=== PATIENT | male | born 1960 | race Caucasian/White ===

== ENCOUNTER 2022-02-21 07:10 | Outpatient (REF) | payer OTHER, SELFPAY ==
[2022-02-21 11:25] LABS: Hemoglobin 12.2 g/dl (14.0-18.0); Mean Corpuscular HGB Conc 31.3 g/dl (31.0-36.0); Mean Corpuscular Hemoglobin 28.4 pg (27.0-33.0); Mean Corpuscular Volume 90.9 fL (80.0-98.0); Mean Platelet Volume 9.1 fL (9.4-12.4); Platelet Count 362 X10*3/uL (160-400); Red Blood Count 4.29 X10*6/uL (4.60-5.80); Red Cell Distribution Width 14.6 % (11.0-16.0); White Blood Count 10.7 X10*3/uL (4.8-10.8)
[2022-02-21 11:50] LABS: Estimated Average Glucose 189 mg/dL; Hemoglobin A1c % 8.2 %
[2022-02-21 12:02] LABS: Alanine Aminotransferase 15 U/L (0-40); Albumin Level 4.4 g/dL (3.5-5.0); Alkaline Phosphatase 81 U/L (39-117); Anion Gap 15 (12-20); Aspartate Amino Transferase 14 U/L (5-37); Bilirubin Total 0.7 mg/dL (0.0-1.0); Blood Urea Nitrogen 17 mg/dL (9-16); Calcium 9.6 mg/dL (8.4-10.2); Carbon Dioxide 26 mmol/L (22-29); Chloride 104 mmol/L (96-108); Cholesterol 111 mg/dL; Estimated Glomerular Filt Rate > 60; Glucose Fasting 183 mg/dL (60-99); HDL Cholesterol 41 mg/dL; LDL Cholesterol Calculated 51 mg/dl; Potassium 4.1 mmol/L (3.3-5.1); Sodium 141 mmol/L (135-145); Total Protein 6.9 g/dL (6.5-8.0); Triglycerides 96 mg/dL
[2022-02-21 12:16] LABS: Prostate Specific Antigen Scr 0.27 ng/mL (<0.05-4.0); TSH reflex Free T4 2.54 uIU/mL (0.32-4.0)
[2022-02-21 12:34] LABS: Microalbum/Creatinine Ratio Ur 7.3 ug/mg cr
== END 2022-02-21 07:11 | disposition home or self-care (01) ==
LOC: HO.HMGCLDS 07:10
PROVIDERS: PCP Physician Assistant; Visit Provider Physician Assistant
DX: Z12.5 Encounter for screening for malignant neoplasm of prostate (principal); I25.10 Atherosclerotic heart disease of native coronary artery without angina pectoris; E11.59 Type 2 diabetes mellitus with other circulatory complications
CPT/HCPCS: 36415; 80053; 80061; 82043; 83036; 84153; 84443; 85027

== ENCOUNTER → 2022-06-13 12:19 | Outpatient (BNVA) | payer OTHER, SELFPAY | PROVIDERS: PCP Physician Assistant; Visit Provider Nurse Practitioner | DX: Z01.818 Encounter for other preprocedural examination (principal); Z86.010 Personal history of colon polyps; E78.00 Pure hypercholesterolemia, unspecified; I10 Essential (primary) hypertension; I25.2 Old myocardial infarction | CPT/HCPCS: 99202 ==

== ENCOUNTER 2022-12-07 07:53 | Day surgery (SDC) | payer MEDICARE, SELFPAY ==
[2022-12-06 08:39] VITALS: BMI 24.4
--- NOTE | 2022-12-06 11:56 | P.CONAN_ITS ---
Documented by User: Tari Lee NP 12/06/22 11:59 HPI - Anesthesia Eval Consult details Narrative: 62yo M for Colonoscopy CAD s/p NM 08/2020 s/p GREG to proximal DI. Stable at cardiac office visit 01/2022. Plavix d/c'd [facility] Active Problems Active Problems: All Active Problems (Updated 12/06/22 @ 08:42 by Maris Graff RN) DMII (diabetes mellitus, type 2) (Acute) CAD (coronary artery disease) (Acute) Family history of colon cancer (Acute) Tubular adenoma of colon (Acute) Pre-op examination (Acute) High cholesterol (Acute) HTN (hypertension), benign (Acute) History of myocardial infarction (Acute) Past Medical History Medical History (Updated 12/06/22 @ 08:42 by Maris Graff RN) CAD (coronary artery disease) Diabetes Elevated cholesterol HTN (hypertension) Myocardial infarction Family History Family History Mother Colon cancer Father No problems noted. 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 LV systolic function nml. LVEF 60-65%. No RWMA 2. Mild descrete upper septal thickening 3. RV size and function appears grossly nml 4. No significant valvular abnormalities No significiant change from 08/2020 Assessment and Plan Assessment Anesthesia Assessment: Chart Reviewed Documented by User: Felipe Dwyer MD 12/07/22 09:17 [facility] Past Medical History Medical History (Updated 12/06/22 @ 08:42 by Maris Graff RN) CAD (coronary artery disease) Diabetes Elevated cholesterol HTN (hypertension) Myocardial infarction Family History Family History Mother Colon cancer Father No problems noted. Family history of problems with anesthesia: No Surgical History Surgical History (Updated 12/06/22 @ 08:40 by Maris Graff RN) H/O colonoscopy H/O heart artery stent H/O spinal fusion History of Problems with Anesthesia: No Social History Social History Housing: House Alcohol intake: former Year quit: 2016 Patient Tobacco Use Status: Never used Tobacco e-Cigarette/Vaping Use: Never Used Substance Use Frequency: Occasionally Are you DNR?: No Advance Directives: No Advance Directives Information Provided: Yes Nutrition Risks: No Nutritional Risk service: No Current occupational status: disabled and other (self employed) 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 Cognitive needs: No Hearing needs: No Vision needs: Yes Meds Allergies Allergy/AdvReac Type Severity Reaction Status Date / Time No Known Drug Allergies Allergy Unknown Unknown Verified 06/13/22 12:25 Home Medications Medication Instructions Recorded Confirmed Last Taken Type metoprolol tartrate 25 mg tablet 25 mg PO DAILY 05/16/22 12/06/22 Unknown History Exam Airway Mallampati Class: II TM Dist: >3cm Neck ROM: Full Heart: ok Lungs: ok Assessment and Plan Assessment Anesthesia Assessment: Anesthesia Plan Discussed Final Anesthetic Review Family History of Problems with Anesthesia: No History of Problems with Anesthesia: No NPO: Yes ASA Class: III Final Preanesthetic Review: No Changes in Pt Med Stat, Meds/Allgs Chart Reviewed, Consent Obtained/Reviewed and Anes Risks/Benef Reviewed Patient Risk: Intermediate Procedure Risk: Low Anesthetic Plan Anesthetic Plan: MAC: and Agree w/ Assess. and Plan Disposition: Standard PACU
--- NOTE | 2022-12-07 08:51 | MHC.SHP ---
Pre-Procedural Eval Section A Date of Service: 12/07/22 Section B Chief Complaint: Encounter for screening for malignant neoplasm Details of Present Illness: mother had CRC Relevant Family History (Specify if Yes): Yes Relevant Social History: None Present Medications: see Short Stay Collaborative assessment Medical History: Significant History (CAD (coronary artery disease) Diabetes Elevated cholesterol HTN (hypertension) Myocardial infarction) History of Previous Operations: Relevant previous surgery/procedure and date(s) (Spinal fusion - L5-S1, several times in lumbar spine Cardiac stent) Allergies: Allergies Allergy/AdvReac Type Severity Reaction Status Date / Time No Known Drug Allergies Allergy Unknown Unknown Verified 06/13/22 12:25 Review of Systems Sugical H&P ROS: Negative: Constitution, Cardiovascular, Respiratory, Neurological, Psychiatric, Hem-Onc, Allergic/Immunologic, Gastrointestinal, Genitourinary, Musculoskeletal, Integumentary, Endocrine and Eyes/Ears/Nose/Throat Exam Surgical H&P Exam: Normal: HEENT, Normal: Heart, Normal: Lungs, Normal: Extremities, Normal: Abdomen, Normal: Skin and Normal: Neurological Plan Diagnosis/Plan: Unchanged I have reviewed the history and physical and performed a pertinent physical examination on my patient. No changes have occurred unless specified. Time Spent With Patient Time: Total time managing care of this patient today ____ minutes.
[2022-12-07] MEDS: Lactated Ringers 1,000 ML 100 ML IVCONT (08:53)
[2022-12-07] MEDS: Sodium Phosphate,Mono-Dibasic 133 ML ENEMA PR (08:53)
--- NOTE | 2022-12-07 09:12 | W.PM.OPN ---
Operative Note Operative Note Date of Service: 12/07/22 Narrative: Operative Information Procedure Description: Colonoscopy Indication: screening Anesthesia: MAC COLONOSCOPY Instrument: Olympus variable stiffness pediatric scope 190L Colonoscopy Monitoring: Vital signs and clinical assessment, continuous EKG monitoring, Pulse oximetry, Carbon Dioxide monitoring and blood pressure monitoring were done throughout the procedure. Colon withdrawal time was 11 minutes. Procedure: The patient was placed in the left lateral decubitis position and pre-procedure medications were administered. After a digital rectal examination of the ano-rectum, the video colonoscope was inserted into the rectum and advanced through the colon to the cecum/TI. The colonoscope was slowly withdrawn in a retrograde panoramic fashion and the colon mucosa was carefully examined including a retroflexed view of the rectum. Findings and interventions are described below. Procedure Difficulty: moderate Findings: Redundant colon Terminal Ileum-normal Cecum:normal Ascending Colon: normal Transverse Colon -normal Descending Colon:normal Sigmoid Colon: normal Rectum: Retroflexion with small internal hemorrhoids, grade I Anorectum - normal Colon preparation: [place] Bowel Preparation Scale Right colon; 3 Transverse colon: 2 Left colon; 2 (0 = Unprepared colon segment with mucosa not seen due to solid stool that cannot be cleared. 1 = Portion of mucosa of the colon segment seen, but other areas of the colon segment not well seen due to staining, residual stool and/or opaque liquid. 2 = Minor amount of residual staining, small fragments of stool and/or opaque liquid, but mucosa of colon segment seen well. 3 = Entire mucosa of colon segment seen well with no residual staining, small fragments of stool or opaque liquid) Impression and Post Procedure Diagnosis: internal hemorrhoids redundant colon Plan: High fiber diet leaflet Avoid straining at stool, epsom salts and sitz bath, anusol supps or cream Repeat Colonoscopy in 5 years deu to FH of CRC or earlier if clinically indicated Above findings were reviewed with the patient and relevant handouts were provided if indicated.
[2022-12-07 09:37] LABS: Glucose, Whole Blood 259 mg/dL (60-115)
[2022-12-07 09:54] VITALS: BP 106/63; PULSE 77; RESP 18; TEMP 36.6; O2SAT 95
[2022-12-07 10:13] VITALS: BP 125/71; PULSE 82; RESP 18; TEMP 36.8; O2SAT 96
== END 2022-12-07 10:47 | disposition home or self-care (01) ==
PROVIDERS: PCP Internal Medicine; Visit Provider Internal Medicine Gastroenterology
PROC: 0DJD8ZZ Inspection of Lower Intestinal Tract, Via Natural or Artificial Opening Endoscopic (ICD-10-PCS; CPT 45378; principal; 2022-12-07 09:20)
DX: Z12.11 Encounter for screening for malignant neoplasm of colon (principal); Z80.0 Family history of malignant neoplasm of digestive organs; Z86.010 Personal history of colon polyps; K64.0 First degree hemorrhoids; Q43.8 Other specified congenital malformations of intestine; I25.10 Atherosclerotic heart disease of native coronary artery without angina pectoris; Z95.5 Presence of coronary angioplasty implant and graft; I25.2 Old myocardial infarction; E11.9 Type 2 diabetes mellitus without complications; I10 Essential (primary) hypertension; E78.00 Pure hypercholesterolemia, unspecified; Z79.82 Long term (current) use of aspirin; Z79.84 Long term (current) use of oral hypoglycemic drugs; Z79.899 Other long term (current) drug therapy; Z88.8 Allergy status to other drugs, medicaments and biological substances
CPT/HCPCS: G0105; 82947

== ENCOUNTER 2023-12-06 13:22 | Outpatient (AMB) | payer MEDICARE, SELFPAY ==
[2023-12-06 13:24] VITALS: BP 159/82; PULSE 91; BMI 21.3
--- NOTE | 2023-12-06 13:24 | MHC.OFFVIS ---
Vital Signs 12/06/23 13:24 Height 5 ft 10 in Weight 148 lb 9.465 oz BMI 21.3 BP 159/82 H Blood Pressure Location Lt brachial Position Sitting Pulse 91 Intake Visit Reasons: Pancolitis Intake Note: Alexander presents to in office visit today for pancolitis. CC: Patient states that his life changed on 11/04/23 he woke up at 3AM with bad diarrhea, abdominal pain, and blood in the stool. He states that he lost his jobs. He went to [facility] on 11/22 and was admitted for 3 days and discharged with abx for colitis infectious. He states that he just wishes to go to sleep and not wake up. Tank Tender Required: No Accompanied by: Self / Same As Patient Allergies No Known Drug Allergies Allergy (Unknown, Verified 12/06/23 13:35) Unknown HPI HPI Pancolitis: Details: Assessment & Plan (1) Pre-op examination: ?Code(s): Z01.818 - Encounter for other preprocedural examination ?Plan: He says he has scopes every 3 years because I am a diabetic. His past scopes were at [facility]. I want to get these records. We can not find it at [facility], so it must have been at [place]. Will request records as it shows 3 polyps in 2016, but none in 2019....so q3 year repeats are questionable. He also tells me a story about them trying to do EGD's on him when there was no indication....so I want to be sure this is necessary. He has lost 60 labs over the past year of so but it was r/t his diabetes and he stopped eating breads, sweets etc. He also used to drink ETOH but stopped. He has been hard to put out in the past for sedation. They told him it was r/t his marijuana use. His cardiac conditions are controlled and he denies any respiratory problems. No ID problems He had 3 polyps in 2016 and his mother of CRC at age 58 (2) Tubular adenoma of colon: ?Comment: Three TA is in 2016, 2019 negative exam all done to [place] ?Code(s): D12.6 - Benign neoplasm of colon, unspecified (3) High cholesterol: ?Code(s): E78.00 - Pure hypercholesterolemia, unspecified (4) HTN (hypertension), benign: ?Code(s): I10 - Essential (primary) hypertension (5) History of myocardial infarction: ?Code(s): I25.2 - Old myocardial infarction ? ? ? Medications: New peg 3350-electrolytes 236-22.74-6.74 -5.86 gram (Golytely) ?? until fecal effluent is clear; do not exceed a total volume of 2,000 mL 240 mL? PO Q10M 1 day 4,000 mL 0RF Z12.11 - Encounter for screening for malignant neoplasm of colon ? COLONOSCOPY 12/07/22 Findings: Redundant colon Terminal Ileum-normal Cecum:normal Ascending Colon: normal Transverse Colon -normal Descending Colon:normal Sigmoid Colon:? normal Rectum: Retroflexion with small internal hemorrhoids, grade I Anorectum - normal Impression and Post Procedure Diagnosis: internal hemorrhoids redundant colon Plan: High fiber diet leaflet Avoid straining at stool, epsom salts and sitz bath, anusol supps or cream Repeat Colonoscopy in 5 years deu to FH of CRC or earlier if clinically indicated BIOPSY CORRESPONDENCE On 12/06/23 @ 11:51 Hayde Aviles Wrote To Hayde Aviles Patient referred for likely infectious colitis seems he was admitted and treated with Zosyn at [facility]. On 12/05/23 @ 13:00 Sheila Hoyos Wrote To Hayde Aviles September this is the patient added to your scheduled for tomorrow. I uploaded the notes and tasked you REVIEW OF [facility] INPATIENT NOTES 12/05/2023 PATIENT ARRIVED TO THE ED HEMODYNAMICALLY STABLE. LABS REVEAL LEUKOCYTOSIS OF 13.7 1000, ELEVATED GLUCOSE OF 187 AND ELEVATED LACTIC ACID LEVEL. PATIENT IS ADMITTED TO HOSPITAL MEDICINE FOR STOOL STUDIES. HE WILL RECEIVE IV ZOSYN A GENTLE IV FLUIDS OUTPATIENT GI REFERRAL. CT scan significant for pancolitis. TODAY'S VISIT Was admitted and he says j I feel so bad I sometimes wish I would not wake up. The abx and admission med did not change his sx of severe explosive diarrhea and vomiting. He has pain and severe pain. He has a FHX of Crohns and UC. Because of the leukocytosis he went to [facility] hematology/oncology, they took a lot of blood w/o and dx except anemia. No oncologic process. CRP was normal but no fecal calprotectin, all stool testing neg for viral or bacterial infection. He is very upset as he has suffered since 10/30. He lost his job and he has not current income. His children are all midlevels. Given the fact that there was no infectious etiology found, and all of his antibiotic treatment did not improve and considering his family history of inflammatory bowel disease I believe that this is probably Crohn's disease. We are going to start him on prednisone 40 mg a day and mesalamine and will taper this to affect her side effect. He is extremely willing to consider other biologics if needed. Will try to get a fecal calprotectin but I do not think that this is absolutely necessary prior to starting treatment. Return office visit next week since he has been so very ill so I can see if he is responding at all to the therapy. COUNT INCLUDES THE [facility] Medical History Elevated cholesterol HTN (hypertension) Diabetes Myocardial infarction CAD (coronary artery disease) Surgical History H/O colonoscopy H/O heart artery stent H/O spinal fusion Family History Mother Colon cancer Father No problems noted. 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 Cognitive needs: No Hearing needs: No Vision needs: Yes Review of Systems Const Denies fatigue, Denies fever(s), Denies night sweats, Denies poor appetite and Reports weight loss (30 lbs sicne 5/5) ENT Reports Normal hearing present, Denies dental pain, Denies dysphagia, Denies hearing loss, Denies mouth pain, Denies odynophagia, Denies throat swelling, Denies tongue swelling and Reports other (Dentition adequate) Card Reports no additional complaints Resp Reports no additional complaints GI Details: Reports abdominal pain, Denies melena, Reports bloating, Reports hematochezia, Denies constipation, Denies GI cramping, Denies dysphagia, Denies excessive flatus, Denies early satiety, Denies heartburn, Reports diarrhea, Reports nausea, Denies odynophagia, Reports vomiting and Denies hematemesis Skin/Breast Denies pruritus, Denies lesions, Denies rash and Denies jaundice Neuro Reports Normal hearing present and Denies Abnormal speech present Endo Denies fatigue Aller/Immun Denies throat swelling and Denies tongue swelling Physical Exam Vital Signs: Last Vital Signs Pulse 91 12/06/23 13:24 BP 159/82 H 12/06/23 13:24 BMI result Body Mass Index 21.3 Const General: cooperative, well developed, in distress moderate, anxious, ill appearing, tired appearing and well groomed Nutritional Appearance: well nourished and thin Orientation/consciousness: oriented to person, oriented to place and oriented to time Limitations: No language barrier HEENT Head: Yes normocephalic and Yes atraumatic Eyes General: appearance normal, both eyes and all related structures Pupils: Equal, round and reactive pupils present Neck Neck: Yes normal visual inspection and Yes no lymphadenopathy Thyroid: Thyroid normal Resp Effort & Inspection: normal respiratory effort and able to speak in complete sentences Auscultation: clear to auscultation bilaterally Cardio Rate: regular rate Rhythm: regular rhythm Heart sounds: Normal, physiologic split S2 sound present Peripheral pulses: radial pulses present and posterior tibial pulses present GI Inspection: Yes distended and No Abdominal panniculus present Palpation (GI): Soft to palpation, nontender, no guarding, not rigid and No hepatosplenomegaly present Auscultation: Hyperactive bowel sounds present Rectal Exam - Male: Yes deferred Skin General skin exam: no rashes or lesions noted, turgor normal, skin not dry, no jaundice, No spider nevi and no striae Rashes: no rashes Nails: normal Neuro General: oriented to person, oriented to place and oriented to time Cranial nerves: Yes Equal, round and reactive pupils present and Yes Normal hearing present Speech: No Abnormal speech present Extrem General: Yes normal to inspection, No clubbing, No cyanosis and No edema Psych Appearance: grossly normal and well kempt Mental Status: mental status grossly normal Speech and movement: Pressured speech present Affect: Labile affect present Attitude: cooperative Thought process: Normal thought process present and not confabulating Thought content: Normal thought content present Insight: Fair insight present (Psych) and Limited insight present (Psych) Judgement: Fair judgement present (Psych) and Limited judgement present (Psych) Results Reviewed Results Reviewed: On 12/06/23 @ 11:51 Hayde Aviles Wrote To TraciHayde Patient referred for likely infectious colitis seems he was admitted and treated with Zosyn at [facility]. On 12/05/23 @ 13:00 Sheila Hoyos Wrote To Hayde Aviles September this is the patient added to your scheduled for tomorrow. I uploaded the notes and tasked you [facility] OF [facility] INPATIENT NOTES 12/05/2023 PATIENT ARRIVED TO THE ED HEMODYNAMICALLY STABLE. LABS REVEAL LEUKOCYTOSIS OF 13.7 1000, ELEVATED GLUCOSE OF 187 AND ELEVATED LACTIC ACID LEVEL. PATIENT IS ADMITTED TO HOSPITAL MEDICINE FOR STOOL STUDIES. HE WILL RECEIVE IV ZOSYN A GENTLE IV FLUIDS OUTPATIENT GI REFERRAL. CT scan significant for pancolitis. Assessment & Plan Assessment & Plan (1) Colitis: Code(s): K52.9 - Noninfective gastroenteritis and colitis, unspecified Category: Medical (2) Tubular adenoma of colon: Comment: = neg study repeat 5 eyars; Three TA is in 2016, 2019 negative exam all done to [facility] Code(s): D12.6 - Benign neoplasm of colon, unspecified Category: Medical (3) IBD (inflammatory bowel disease): Code(s): K52.9 - Noninfective gastroenteritis and colitis, unspecified Category: Medical Plan Was admitted and he says j I feel so bad I sometimes wish I would not wake up. The abx and admission med did not change his sx of severe explosive diarrhea and vomiting. He has pain and severe pain. He has a FHX of Crohns and UC. Because of the leukocytosis he went to [facility] hematology/oncology, they took a lot of blood w/o and dx except anemia. No oncologic process. CRP was normal but no fecal calprotectin, all stool testing neg for viral or bacterial infection. He is very upset as he has suffered since 10/30. He lost his job and he has not current income. His children are all midlevels. Given the fact that there was no infectious etiology found, and all of his antibiotic treatment did not improve and considering his family history of inflammatory bowel disease I believe that this is probably Crohn's disease. We are going to start him on prednisone 40 mg a day and mesalamine and will taper this to affect her side effect. He is extremely willing to consider other biologics if needed. Will try to get a fecal calprotectin but I do not think that this is absolutely necessary prior to starting treatment. Return office visit next week since he has been so very ill so I can see if he is responding at all to the therapy Orders: Orders Calprotectin, Fecal Today K52.9 - Noninfective gastroenteritis and colitis, unspecified Medications: New prednisone 40 mg (2 x 20 mg) PO DAILY 60 tabs 3RF K52.9 - Noninfective gastroenteritis and colitis, unspecified mesalamine (Lialda) 2.4 grams (2 x 1.2 gram) PO BID 120 tabs 6RF 30 days K52.9 - Noninfective gastroenteritis and colitis, unspecified Coding Level of Care Code Est Pt Level 4 (06950) Diagnoses Colitis K52.9 Tubular adenoma of colon D12.6 IBD (inflammatory bowel disease) K52.9
== END 2023-12-06 14:28 | disposition home or self-care (01) ==
PROVIDERS: PCP Internal Medicine; Visit Provider Nurse Practitioner
DX: K52.9 Noninfective gastroenteritis and colitis, unspecified (principal); D12.6 Benign neoplasm of colon, unspecified
CPT/HCPCS: 99214

== ENCOUNTER 2023-12-06 13:22 | Outpatient (REF) | payer MEDICARE, SELFPAY ==
[2023-12-12 20:43] LABS: Calprotectin, Fecal 756 mcg/g
== END 2023-12-06 13:23 | disposition home or self-care (01) ==
LOC: HO.LAB 13:22
PROVIDERS: PCP Internal Medicine; Visit Provider Nurse Practitioner
DX: K52.9 Noninfective gastroenteritis and colitis, unspecified (principal); D12.6 Benign neoplasm of colon, unspecified; E78.00 Pure hypercholesterolemia, unspecified; I10 Essential (primary) hypertension
CPT/HCPCS: 83993; 99212

== ENCOUNTER 2023-12-13 10:02 | Outpatient (AMB) | payer MEDICARE, SELFPAY ==
[2023-12-13 10:07] VITALS: BP 128/65; PULSE 68; BMI 21.5
--- NOTE | 2023-12-13 10:07 | A.OFFVIS_ITS ---
Vital Signs 12/13/23 10:07 Height 5 ft 10 in Weight 149 lb 14.629 oz BMI 21.5 BP 128/65 Blood Pressure Location Rt brachial Position Sitting Pulse 68 Intake Visit Reasons: follow up Intake Note: Alexander returns to in office follow up for lab results. CC: Patient states that he is doing a little better from diarrhea and abd pain and he rarely sees blood in stool. Top Polisher Required: No Accompanied by: Self / Same As Patient Allergies No Known Drug Allergies Allergy (Unknown, Verified 12/13/23 10:16) Unknown HPI HPI follow up: Details: Assessment & Plan (1) Colitis: Code(s): K52.9 - Noninfective gastroenteritis and colitis, unspecified Category: Medical (2) Tubular adenoma of colon: Comment: = neg study repeat 5 eyars; Three TA is in 2015, 2019 negative exam all done to [facility] Code(s): D12.6 - Benign neoplasm of colon, unspecified Category: Medical (3) IBD (inflammatory bowel disease): Code(s): K52.9 - Noninfective gastroenteritis and colitis, unspecified Category: Medical Plan Was admitted and he says j I feel so bad I sometimes wish I would not wake up. The abx and admission med did not change his sx of severe explosive diarrhea and vomiting. He has pain and severe pain. He has a FHX of Crohns and UC. Because of the leukocytosis he went to [facility] hematology/oncology, they took a lot of blood w/o and dx except anemia. No oncologic process. CRP was normal but no fecal calprotectin, all stool testing neg for viral or bacterial infection. He is very upset as he has suffered since 10/30. He lost his job and he has not current income. His children are all midlevels. Given the fact that there was no infectious etiology found, and all of his antibiotic treatment did not improve and considering his family history of inflammatory bowel disease I believe that this is probably Crohn's disease. We are going to start him on prednisone 40 mg a day and mesalamine and will taper this to affect her side effect. He is extremely willing to consider other biologics if needed. Will try to get a fecal calprotectin but I do not think that this is absolutely necessary prior to starting treatment. Return office visit next week since he has been so very ill so I can see if he is responding at all to the therapy Orders: Orders Calprotectin, Fecal Today K52.9 - Noninfective gastroenteritis and colitis, unspecified Medications: New prednisone 40 mg (2 x 20 mg) PO DAILY 60 tabs 3RF K52.9 - Noninfective gastroenteritis and colitis, unspecified mesalamine (Lialda) 2.4 grams (2 x 1.2 gram) PO BID 120 tabs 6RF 30 days K52.9 - Noninfective gastroenteritis and colitis, unspecified LABS: Laboratory Tests 12/06/23 15:00 Stool Calprotectin 756 H CORRESPONDENCE On 12/06/23 @ 11:51 Hayde Aviles Wrote To Hayde Aviles Patient referred for likely infectious colitis seems he was admitted and treated with Zosyn at [facility]. On 12/05/23 @ 13:00 Sheila Hoyos Wrote To Hayde Aviles September this is the patient added to your scheduled for tomorrow. I uploaded the notes and tasked you TODAY'S VISIT He is doing much better!! He is quite impressed that he has had such an immediate improvement after only 1 week of medications. He has now having a 100% less pain according to his report, 90% less diarrhea with only occasional loose stools in the morning, no nausea and vomiting, and he has stopped losing weight and may have even gained a lb or 2. He is feeling very much stronger in better and is extremely encouraged by this. We did have some trouble with cost in the he take quite a lot of money for the mesalamine, and he is decided to stick with the prednisone since it is less expensive as he feels he can handle the restlessness in the side effects as it is getting better. We also will change the dosing to in the early evening and set up 1st thing in the morning because he finds he has a period of hyperactivity followed by sleepiness and this will coordinate better with his bedtime. He is aware that his A1c in his sugars may run higher for a bit but this is necessary in the short term. If we can not wean him from the mesalamine then will consider biologic such as Humira. Return office visit in 5 or 6 weeks so we can then consider his progress and maybe consider an early wean. [facility] Medical History Elevated cholesterol HTN (hypertension) Diabetes Myocardial infarction CAD (coronary artery disease) Surgical History H/O colonoscopy H/O heart artery stent H/O spinal fusion Family History Mother Colon cancer Father No problems noted. 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 Cognitive needs: No Hearing needs: No Vision needs: Yes Review of Systems Const Denies fatigue, Denies fever(s), Denies night sweats, Denies poor appetite and Denies weight loss ENT Reports Normal hearing present, Denies dental pain, Denies dysphagia, Denies hearing loss, Denies mouth pain, Denies odynophagia, Denies throat swelling, Denies tongue swelling and Reports other (Dentition adequate) Card Reports no additional complaints Resp Reports no additional complaints GI Details: Denies abdominal pain, Denies melena, Denies bloating, Denies hematochezia, Denies constipation, Denies GI cramping, Denies dysphagia, Denies excessive flatus, Denies early satiety, Denies heartburn, Denies diarrhea, Reports loose stools, Denies nausea, Denies odynophagia, Denies vomiting and Denies hematemesis Skin/Breast Denies pruritus, Denies lesions, Denies rash and Denies jaundice Neuro Reports Normal hearing present and Denies Abnormal speech present Endo Denies fatigue Aller/Immun Denies throat swelling and Denies tongue swelling Physical Exam Vital Signs: Last Vital Signs Pulse 68 12/13/23 10:07 BP 128/65 12/13/23 10:07 BMI result Body Mass Index 21.5 Const General: cooperative, no acute distress, well developed and well groomed Nutritional Appearance: well nourished and thin Orientation/consciousness: oriented to person, oriented to place and oriented to time Limitations: No language barrier HEENT Head: Yes normocephalic and Yes atraumatic Eyes General: appearance normal, both eyes and all related structures Pupils: Equal, round and reactive pupils present Neck Neck: Yes normal visual inspection and Yes no lymphadenopathy Thyroid: Thyroid normal Resp Effort & Inspection: normal respiratory effort and able to speak in complete sentences Auscultation: clear to auscultation bilaterally Cardio Rate: regular rate Rhythm: regular rhythm Heart sounds: Normal, physiologic split S2 sound present Peripheral pulses: radial pulses present and posterior tibial pulses present GI Inspection: No distended and No Abdominal panniculus present Palpation (GI): Soft to palpation, nontender, no guarding, not rigid and No hepatosplenomegaly present Percussion: Yes normal to percussion Auscultation: normal bowel sounds Rectal Exam - Male: Yes deferred Skin General skin exam: no rashes or lesions noted, turgor normal, skin not dry, no jaundice, No spider nevi and no striae Rashes: no rashes Nails: normal Neuro General: oriented to person, oriented to place and oriented to time Cranial nerves: Yes Equal, round and reactive pupils present and Yes Normal hearing present Speech: No Abnormal speech present Extrem General: Yes normal to inspection, No clubbing, No cyanosis and No edema Psych Appearance: grossly normal and well kempt Mental Status: mental status grossly normal Speech and movement: Pressured speech present Affect: Animated affect present Attitude: cooperative Thought process: Normal thought process present and not confabulating Thought content: Normal thought content present Insight: Fair insight present (Psych) Judgement: Fair judgement present (Psych) Assessment & Plan Assessment & Plan (1) IBD (inflammatory bowel disease): Code(s): K52.9 - Noninfective gastroenteritis and colitis, unspecified Category: Medical (2) Colitis: Code(s): K52.9 - Noninfective gastroenteritis and colitis, unspecified Category: Medical Plan He is doing much better!! He is quite impressed that he has had such an immediate improvement after only 1 week of medications. He has now having a 100% less pain according to his report, 90% less diarrhea with only occasional loose stools in the morning, no nausea and vomiting, and he has stopped losing weight and may have even gained a lb or 2. He is feeling very much stronger in better and is extremely encouraged by this. We did have some trouble with cost in the he take quite a lot of money for the mesalamine, and he is decided to stick with the prednisone since it is less expensive as he feels he can handle the restlessness in the side effects as it is getting better. We also will change the dosing to in the early evening and set up 1st thing in the morning because he finds he has a period of hyperactivity followed by sleepiness and this will coordinate better with his bedtime. He is aware that his A1c in his sugars may run higher for a bit but this is necessary in the short term. If we can not wean him from the mesalamine then will consider biologic such as Humira. Return office visit in 5 or 6 weeks so we can then consider his progress and maybe consider an early wean. Medications: On Hold budesonide GAYLE Farfan Comment: Doctor's Order 9 mg (3 x 3 mg) PO DAILY 90 ea 3RF K52.9 - Noninfective gastroenteritis and colitis, unspecified Resumed prednisone 40 mg (2 x 20 mg) PO DAILY 60 tabs 3RF K52.9 - Noninfective gastroenteritis and colitis, unspecified Coding Level of Care Code Est Pt Level 3 (54288) Diagnoses IBD (inflammatory bowel disease) K52.9 Colitis K52.9
== END 2023-12-13 10:46 | disposition home or self-care (01) ==
PROVIDERS: PCP Internal Medicine; Visit Provider Nurse Practitioner
DX: K52.9 Noninfective gastroenteritis and colitis, unspecified (principal)
CPT/HCPCS: 99213

== ENCOUNTER → 2023-12-13 10:02 | Outpatient (BNVA) | payer MEDICARE, SELFPAY | PROVIDERS: PCP Internal Medicine; Visit Provider Nurse Practitioner | DX: K52.9 Noninfective gastroenteritis and colitis, unspecified (principal) | CPT/HCPCS: 99212 ==

== ENCOUNTER 2024-01-17 10:08 | Outpatient (REF) | payer MEDICARE, SELFPAY ==
[2024-01-17 13:26] LABS: C Reactive Protein 0.11 mg/dL (< or = 0.50)
== END 2024-01-17 10:09 | disposition home or self-care (01) ==
LOC: HO.LAB 10:08
PROVIDERS: PCP Internal Medicine; Visit Provider Nurse Practitioner
DX: K52.9 Noninfective gastroenteritis and colitis, unspecified (principal); E11.59 Type 2 diabetes mellitus with other circulatory complications; R60.0 Localized edema
CPT/HCPCS: 36415; 86140; 99212

== ENCOUNTER 2024-01-17 10:08 | Outpatient (AMB) | payer MEDICARE, SELFPAY ==
[2024-01-17 10:11] VITALS: BP 159/78; PULSE 72; BMI 21.8
--- NOTE | 2024-01-17 10:11 | MHC.OFFVIS ---
Vital Signs 01/17/24 10:11 Height 5 ft 10 in Weight 152 lb 1.903 oz BMI 21.8 BP 159/78 H Blood Pressure Location Lt brachial Position Sitting Pulse 72 Intake Visit Reasons: 5 week follow up Intake Note: Alexander presents to in office today in 5 weeks follow up of IBD. CC: Patient states that he feels bloated and constipated. He is also having ankles swelling and red dots on his legs . 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 He is quite impressed that he has had such an immediate improvement after only 1 week of medications. He has now having a 100% less pain according to his report, 90% less diarrhea with only occasional loose stools in the morning, no nausea and vomiting, and he has stopped losing weight and may have even gained a lb or 2. He is feeling very much stronger in better and is extremely encouraged by this. We did have some trouble with cost in the he take quite a lot of money for the mesalamine, and he is decided to stick with the prednisone since it is less expensive as he feels he can handle the restlessness in the side effects as it is getting better. We also will change the dosing to in the early evening and set up 1st thing in the morning because he finds he has a period of hyperactivity followed by sleepiness and this will coordinate better with his bedtime. He is aware that his A1c in his sugars may run higher for a bit but this is necessary in the short term. If we can not wean him from the mesalamine then will consider biologic such as Humira. Return office visit in 5 or 6 weeks so we can then consider his progress and maybe consider an early wean. Medications: On Hold budesonide GAYLE Farfan Comment: Doctor's Order 9 mg (3 x 3 mg) PO DAILY 90 ea 3RF K52.9 - Noninfective gastroenteritis and colitis, unspecified Resumed prednisone 40 mg (2 x 20 mg) PO DAILY 60 tabs 3RF K52.9 - Noninfective gastroenteritis and colitis, unspecified TODAY'S VISIT He still feels a great deal better, but he still has pain in the abd, frequent tenesmus and bloating. He is less anxious with budeside. He has significant ankle swelling that is bothersome. He is agreeable to progressing to Humira. Will repeat fecal calprotectin and CRP to eval status. His new PCP seems to think that he does not have Crohns because he hasn't had a colonoscopy. He quit his seroquel cold turkey a few months ago. He was unaware that he should have weaned down. He has trazodone available for insomnia but has not taken it yet. (? rebound vangie). He is only eating a paleo diet right now. Hopefully, we can expand his diet if we get the Crohns controlled. He gets a lot of protein. We will start with compression stockings and if needed progress to lasix. We will do a repeat scope when he is stabilized. ROV 3 weeks. [facility] Medical History Elevated cholesterol HTN (hypertension) Diabetes Myocardial infarction CAD (coronary artery disease) Surgical History H/O colonoscopy H/O heart artery stent H/O spinal fusion Family History Mother Colon cancer Father No problems noted. 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 Cognitive needs: No Hearing needs: No Vision needs: Yes Review of Systems Const Denies fatigue, Denies fever(s), Denies night sweats, Denies poor appetite and Denies weight loss ENT Reports Normal hearing present, Denies dental pain, Denies dysphagia, Denies hearing loss, Denies mouth pain, Denies odynophagia, Denies throat swelling, Denies tongue swelling and Reports other (Dentition adequate) Card Reports no additional complaints Resp Reports no additional complaints GI Details: Denies abdominal pain, Denies melena, Denies bloating, Denies hematochezia, Denies constipation, Reports GI cramping, Denies dysphagia, Denies excessive flatus, Denies early satiety, Reports dyspepsia, Denies heartburn, Denies diarrhea, Denies nausea, Denies odynophagia, Denies vomiting and Denies hematemesis Skin/Breast Denies pruritus, Denies lesions, Denies rash and Denies jaundice Neuro Reports Normal hearing present and Denies Abnormal speech present Endo Denies fatigue Aller/Immun Denies throat swelling and Denies tongue swelling Physical Exam Vital Signs: Last Vital Signs Pulse 72 01/17/24 10:11 BP 159/78 H 01/17/24 10:11 BMI result Body Mass Index 21.8 Const General: cooperative, no acute distress, well developed and well groomed Nutritional Appearance: well nourished and thin Orientation/consciousness: oriented to person, oriented to place and oriented to time Limitations: No language barrier HEENT Head: Yes normocephalic and Yes atraumatic Eyes General: appearance normal, both eyes and all related structures Pupils: Equal, round and reactive pupils present Neck Neck: Yes normal visual inspection and Yes no lymphadenopathy Thyroid: Thyroid normal Resp Effort & Inspection: normal respiratory effort and able to speak in complete sentences Auscultation: clear to auscultation bilaterally Cardio Rate: regular rate Rhythm: regular rhythm Heart sounds: Normal, physiologic split S2 sound present Peripheral pulses: radial pulses present and posterior tibial pulses present GI Inspection: No distended and No Abdominal panniculus present Palpation (GI): Soft to palpation, nontender, no guarding, not rigid and No hepatosplenomegaly present Percussion: Yes normal to percussion Auscultation: normal bowel sounds Rectal Exam - Male: Yes deferred Skin General skin exam: no rashes or lesions noted, turgor normal, skin not dry, no jaundice, No spider nevi and no striae Rashes: no rashes Nails: normal Neuro General: oriented to person, oriented to place and oriented to time Cranial nerves: Yes Equal, round and reactive pupils present and Yes Normal hearing present Speech: No Abnormal speech present Extrem General: Yes normal to inspection, No clubbing, No cyanosis and No edema Psych Appearance: grossly normal and well kempt Mental Status: mental status grossly normal Speech and movement: Pressured speech present Affect: Animated affect present Attitude: cooperative Thought process: Circumstantial thought process present and not confabulating Thought content: Normal thought content present Insight: Limited insight present (Psych) Judgement: Limited judgement present (Psych) Assessment & Plan Assessment & Plan (1) IBD (inflammatory bowel disease): Code(s): K52.9 - Noninfective gastroenteritis and colitis, unspecified Category: Medical (2) Colitis: Code(s): K52.9 - Noninfective gastroenteritis and colitis, unspecified Category: Medical (3) DMII (diabetes mellitus, type 2): Code(s): E11.9 - Type 2 diabetes mellitus without complications Category: Medical Qualifiers: Diabetes mellitus complication detail: with other circulatory complications Diabetes mellitus complication status: with circulatory complication Diabetes mellitus ferry terminal agent insulin use: without ferry terminal agent use Qualified Code(s): E11.59 - Type 2 diabetes mellitus with other circulatory complications (4) Lower extremity edema: Code(s): R60.0 - Localized edema Category: Medical Plan He still feels a great deal better, but he still has pain in the abd, frequent tenesmus and bloating. He is less anxious with budeside. He has significant ankle swelling that is bothersome. He is agreeable to progressing to [facility]. Will repeat fecal calprotectin and CRP to eval status. His new PCP seems to think that he does not have Crohns because he hasn't had a colonoscopy. He quit his seroquel cold turkey a few months ago. He was unaware that he should have weaned down. He has trazodone available for insomnia but has not taken it yet. (? rebound vangie). He is only eating a paleo diet right now. Hopefully, we can expand his diet if we get the Crohns controlled. He gets a lot of protein. We will start with compression stockings and if needed progress to lasix. We will do a repeat scope when he is stabilized. ROV 3 weeks. Orders: Orders C Reactive Protein 01/17/24 K52.9 - Noninfective gastroenteritis and colitis, unspecified Calprotectin, Fecal 01/21/24 K52.9 - Noninfective gastroenteritis and colitis, unspecified Medications: New adalimumab (Humira(CF) Pen) inject one - 40 mg/0.4 mL pen every 2 weeks subcut 2 ea 0RF adalimumab inject 180mg day 1, 80 mg day 15, then 40mg every 2 weeks 6 ea 0RF Coding Level of Care Code Est Pt Level 3 (73007) Diagnoses IBD (inflammatory bowel disease) K52.9 Colitis K52.9 Type 2 diabetes mellitus with other circulatory complication, without long-term current use of insulin E11.59 Diabetes mellitus complication detail: with other circulatory complications Diabetes mellitus complication status: with circulatory complication Diabetes mellitus usp insulin use: without ferry terminal agent use Lower extremity edema R60.0
== END 2024-01-17 11:18 | disposition home or self-care (01) ==
PROVIDERS: PCP Internal Medicine; Visit Provider Nurse Practitioner
DX: K52.9 Noninfective gastroenteritis and colitis, unspecified (principal); E11.59 Type 2 diabetes mellitus with other circulatory complications; R60.0 Localized edema
CPT/HCPCS: 99213

== ENCOUNTER 2024-01-21 09:38 | Outpatient (REF) | payer MEDICARE, SELFPAY ==
[2024-01-28 18:19] LABS: Calprotectin, Fecal 49 mcg/g
== END 2024-01-21 09:39 | disposition home or self-care (01) ==
LOC: HO.LNP 09:38
PROVIDERS: Visit Provider Nurse Practitioner
DX: K52.9 Noninfective gastroenteritis and colitis, unspecified (principal)
CPT/HCPCS: 83993

== ENCOUNTER → 2024-02-22 11:45 | Outpatient (BNVA) | payer MEDICARE, SELFPAY | PROVIDERS: PCP Internal Medicine; Visit Provider Nurse Practitioner ==

== ENCOUNTER 2024-03-07 10:02 | Outpatient (AMB) | payer MEDICARE, SELFPAY ==
--- NOTE | 2024-03-07 10:07 | A.OFFVIS_ITS ---
Vital Signs 03/07/24 10:09 Height 5 ft 10 in Weight 154 lb 5.177 oz BMI 22.1 BP 160/90 H Blood Pressure Location Lt brachial Position Sitting Pulse 68 Pulse Source Pulse Oximeter Pulse Oximetry (%) 97 Oxygen Delivery Method Room Air Intake Visit Reasons: 2 week follow up Intake Note: Alexander presents in office today for a scheduled 2 week FUV. CC; Pt reports that they are here today for another injection of their Humira. Pt denies any new concerns or sx since their last visit. Custodial Officer Required: No Allergies No Known Drug Allergies Allergy (Unknown, Verified 03/07/24 10:08) Unknown HPI HPI 2 week follow up: Details: Alexander was in to see me for injection teaching 2 weeks ago and at that time we had 1 misfired syringe and had to give the 2 remaining 80 mg syringes of the loading dose. CORRESPONDENCE On 03/06/24 @ 09:10 Deborah Suresh Wrote To Hayde Aviles I spoke w/ the patient - didn't get to discuss below because patient informed me that the Humira was in fact delivered and he has follow up with you tomorrow so he will bring it in. On 03/05/24 @ 14:41 Hayde Aviles Wrote To Deborah Suresh See if we can get Alexander in to do a Prometheus thiopurine test and if he is a normal metabolizer I can put him on Imuran which is a pill form and I think this would suit his lifestyle and temperament better as a treatment. On 03/05/24 @ 14:29 Deborah Suresh Wrote To Hayde Aviles I spoke w/ carding doubler. Unfortunately I was informed that patient was uncooperative and informed the carding doubler that he was not disclosing any information with them on three sep occasions and the case for replacement was closed. the quality center # is On 02/27/24 @ 15:36 Hayde Aviles Wrote To Hayde Aviles correction; Specialty Pharmacy # On 02/27/24 @ 10:14 Hayde Aviles Wrote To Hayde Aviles At 8 40 this morning spoke with the [facility] nurses line and explained the situation with the pre discharged pin. We need a replacement 80 mg dose. They directed me to call [facility] which opened at 09:00 and I called them at approximately 09:30 spoke with our even the pharmacist who told me they would be calling the patient for additional details and I should call their specialty pharmacy to have replacement pin sent. Case number [id number] Send email to patient informing him he would be hearing from [facility] to confirm details. Specialty pharmacy [phone] I called them at approximately 10:15 to provide a 1 time prescription Hayde Aviles completed item. At 8 40 this morning spoke with the [facility] nurses line and explained the situation with the pre discharged pin. We need a replacement 80 mg dose. They directed me to call [facility] which opened at 09:00 and I called them at approximately 09:30 spoke with our even the pharmacist who told me they would be calling the patient for additional details and I should call their specialty pharmacy to have replacement pin sent. Case number [id number] Send email to patient informing him he would be hearing from [facility] to confirm details. Specialty pharmacy [phone] I called them at approximately 10:15 to provide a 1 time prescription On 02/07/24 @ 14:45 Tala Duval Wrote To TraciHayde spoke with patient, he reports [facility], called and informed him he is approved for Humira- free no copay. He will discuss this with Hadye and bring in letter from [facility] with next OV- 02/21 at 11:30 On 01/25/24 @ 12:23 Hayde Aviles Wrote To TraciHayde (2) Ok to continue with 2 tabs only and we will still go to Humira; unless he feels allof his sx are controlled (??) On 01/24/24 @ 09:22 Deborah Suresh Wrote To TraciHayde patient has gone 4 days without taking the Mesalamine for four days. patient recently got a pill fuentes and accidentally forgot to put in the evening dose. patient states he has felt better in the last four days taking the once a day (2 tabs) than he has in the past 30 days taking the BID dosing. Is he to continue with two tabs BID as he will be going on Humira? patient states at last visit it was discussed that he will be weaned off. patient states he is less crampy, less in pain, overall better. On 01/17/24 @ 11:34 Deborah Suresh Wrote To Hayde Aviles NIDA approved for Humira starter kit, script will be forwarded to [facility] - approval letter scanned into patients chart On 01/17/24 @ 10:57 Hayde Aviles Wrote To Deborah Suresh PT with Crohns not responding to mesalamine and prednisone, needs Humira TODAY'S VISIT Today Alexander has to 40 mg syringes with him so we will do injection teaching with 1 of them and then have him give the other 1 so that he feels ready to give his 40 mg dose in 2 weeks. He has been feeling well and has had no diarrhea and no adverse reactions to the initial injections. He feels much better today about giving himself the injections and since he brought his cheat her she is able to see the window and tell went to let go of the syringe. After his next injection we will cut back to 1 budesonide a day. He has been taking 2 a day as he already decreased from 3 a day and he had stopped his mesalamine about 4-6 weeks ago. He will go to 1 tablet for 2 weeks and then hopefully he will be completely off the steroid. This is important because he is also a diabetic and he has had some increase in his blood sugars with the steroid therapy despite the sparing affects of the budesonide. I wrote a letter to his primary care provider about the steroid therapy as it does not seem that he was aware of what Entocort was and how it would be affecting Alexander's diabetes. He is eager to start Alexander on a new medication and I would urge them to put this off until he is completely off of the steroids because he likely will stabilize back to his pretreatment normals once this is out of his system. Return office visit in 2 weeks [facility] Medical History Pre-op examination Elevated cholesterol HTN (hypertension) Diabetes Myocardial infarction CAD (coronary artery disease) Surgical History H/O colonoscopy H/O heart artery stent H/O spinal fusion Family History Mother Colon cancer Father No problems noted. Social History Housing: House Alcohol intake: former Year quit: 2017 Patient Tobacco Use Status: Never used Tobacco e-Cigarette/Vaping Use: Never Used service: No Current occupational status: disabled and other Current occupation: Former [employer] Cognitive needs: No Hearing needs: No Vision needs: Yes Review of Systems Const Denies fatigue, Denies fever(s), Denies night sweats, Denies poor appetite and Denies weight loss Eyes Details: Glasses Reports requires corrective lenses ENT Reports Normal hearing present, Denies dental pain, Denies dysphagia, Denies hearing loss, Denies mouth pain, Denies odynophagia, Denies throat swelling, Denies tongue swelling and Reports other (Dentition adequate) Card Reports no additional complaints Resp Reports no additional complaints GI Details: Denies abdominal pain, Denies melena, Denies bloating, Denies hematochezia, Denies constipation, Denies GI cramping, Denies dysphagia, Denies excessive flatus, Denies early satiety, Denies heartburn, Denies diarrhea, Denies nausea, Denies odynophagia, Denies vomiting and Denies hematemesis Skin/Breast Denies pruritus, Denies lesions, Denies rash and Denies jaundice Neuro Reports Normal hearing present and Denies Abnormal speech present Psych Reports abnormal sleep pattern and Reports anxiety Endo Denies fatigue Aller/Immun Denies throat swelling and Denies tongue swelling Physical Exam Vital Signs: Last Vital Signs Pulse 68 03/07/24 10:09 BP 160/90 H 03/07/24 10:09 Pulse Ox 97 03/07/24 10:09 Oxygen Delivery Method Room Air 03/07/24 10:09 BMI result Body Mass Index 22.1 Const General: cooperative, no acute distress, well developed and well groomed Nutritional Appearance: average body habitus and well nourished Orientation/consciousness: oriented to person, oriented to place and oriented to time Limitations: No language barrier HEENT Head: Yes normocephalic and Yes atraumatic Eyes General: appearance normal, both eyes and all related structures Pupils: Equal, round and reactive pupils present Neck Neck: Yes normal visual inspection and Yes no lymphadenopathy Thyroid: Thyroid normal Resp Effort & Inspection: normal respiratory effort and able to speak in complete sentences Auscultation: clear to auscultation bilaterally Cardio Rate: regular rate Rhythm: regular rhythm Heart sounds: Normal, physiologic split S2 sound present Peripheral pulses: radial pulses present and posterior tibial pulses present GI Inspection: No distended and No Abdominal panniculus present Palpation (GI): Soft to palpation, nontender, no guarding, not rigid and No hepatosplenomegaly present Percussion: Yes normal to percussion Auscultation: normal bowel sounds Rectal Exam - Male: Yes deferred Skin General skin exam: no rashes or lesions noted, turgor normal, skin not dry, no jaundice, No spider nevi and no striae Rashes: no rashes Nails: normal Neuro General: oriented to person, oriented to place and oriented to time Cranial nerves: Yes Equal, round and reactive pupils present and Yes Normal hearing present Speech: No Abnormal speech present Extrem General: Yes normal to inspection, No clubbing, No cyanosis and No edema Psych Appearance: grossly normal and well kempt Mental Status: mental status grossly normal Speech and movement: Normal speech and movement present Affect: normal affect Attitude: cooperative Thought process: Normal thought process present and not confabulating Thought content: Normal thought content present Insight: Limited insight present (Psych) Judgement: Limited judgement present (Psych) Assessment & Plan Assessment & Plan (1) IBD (inflammatory bowel disease): Code(s): K52.9 - Noninfective gastroenteritis and colitis, unspecified Category: Medical Plan Today lAexander has to 40 mg syringes with him so we will do injection teaching with 1 of them and then have him give the other 1 so that he feels ready to give his 40 mg dose in 2 weeks. He has been feeling well and has had no diarrhea and no adverse reactions to the initial injections. He feels much better today about giving himself the injections and since he brought his cheat her she is able to see the window and tell went to let go of the syringe. After his next injection we will cut back to 1 budesonide a day. He has been taking 2 a day as he already decreased from 3 a day and he had stopped his mesalamine about 4-6 weeks ago. He will go to 1 tablet for 2 weeks and then hopefully he will be completely off the steroid. This is important because he is also a diabetic and he has had some increase in his blood sugars with the steroid therapy despite the sparing affects of the budesonide. I wrote a letter to his primary care provider about the steroid therapy as it does not seem that he was aware of what Entocort was and how it would be affecting Alexander's diabetes. He is eager to start Alexander on a new medication and I would urge them to put this off until he is completely off of the steroids because he likely will stabilize back to his pretreatment normals once this is out of his system. Return office visit in 2 weeks Medications: Refilled adalimumab (Humira(CF) Pen) inject one - 40 mg/0.4 mL pen every 2 weeks subcut 2 ea 0RF Patient Instructions: RE: SilvianoAlexnader jensen Amb 63, M?1960 Dr. Harjinder Graham, I am SINDHU Sebastian and just to let you know I am treating Alexander for Crohns disease. He has been on prednisone, but this caused insomnia, so we progressed to Entocort (budesonide) because this has less systemic action and s/w and more specific action in the intestine. BUT, it does have some systemic effects and this is likely causing his elevated blood sugars. He is now transitioning to Humira, and we are in the process of tapering off of the Entocort. In the course of 8 weeks he should be off of it and his sugars should normalize to his baseline of control. If you have any questions I would be happy to be of assistance in the coordination of his care. Sincerely, SINDHU Bishop Coding Level of Care Code Est Pt Level 3 (87491) Diagnoses IBD (inflammatory bowel disease) K52.9
[2024-03-07 10:09] VITALS: BP 160/90; PULSE 68; O2SAT 97; BMI 22.1
== END 2024-03-07 10:53 | disposition home or self-care (01) ==
PROVIDERS: PCP Internal Medicine; Visit Provider Nurse Practitioner
DX: K52.9 Noninfective gastroenteritis and colitis, unspecified (principal)
CPT/HCPCS: 99213

== ENCOUNTER → 2024-03-07 10:02 | Outpatient (BNVA) | payer MEDICARE, SELFPAY | PROVIDERS: PCP Internal Medicine; Visit Provider Nurse Practitioner | DX: K52.9 Noninfective gastroenteritis and colitis, unspecified (principal); Z79.620 Long term (current) use of immunosuppressive biologic | CPT/HCPCS: 99212 ==

== ENCOUNTER 2024-03-13 13:49 | Outpatient (AMB) | payer MEDICARE, SELFPAY ==
--- NOTE | 2024-03-13 13:50 | A.OFFVIS_ITS ---
Vital Signs 03/13/24 13:55 Height 5 ft 10 in Weight 154 lb 5.177 oz BMI 22.1 BP 140/88 H Blood Pressure Location Rt brachial Position Sitting Pulse 85 Pulse Source Pulse Oximeter Intake Visit Reasons: T2DM/LVM Intake Note: NEW Patient presents today to establish treatment for Type 2 Diabetes Mellitus: Last Diabetic eye exam was on: 4 months ago, no diabetic retinopathy Last Podiatry exam was on: Does not see a Chinchilla Machine Operator Most recent HbA1c: 11.4%, 03/13/2024 Random Glucose- 375 mg/dL, Today Couples Therapist Required: No Accompanied by: Self / Same As Patient Allergies No Known Drug Allergies Allergy (Unknown, Verified 03/13/24 13:55) Unknown HPI Comments Details: The patient is a 63 year old male with uncontrolled type 2 diabetes presenting for consultation Medical history: bipolar disorder, IBD-Crohns, CAD s/p PCI Diagnosed with diabetes since 1994. Current medication: Glipizide ER 10mg twice daily, metformin 1000mg twice daily POC today 11.4%. IBD recently diagnosed. He was hospitalized at the beginning of November with colitis, then diagnosed with Crohns. His medications are being adjust. Trying to decrease steroids as he continues Humira. Says A1C has been out of control since all the steroids he has needed since November Micro/macrovascular complications: CAD Denies hypoglycemia Denies polyuria, polydipsia ROS CONSTITUTIONAL: Denies weight loss, fever and chills. HEENT: Denies changes in vision and hearing. RESPIRATORY: Denies SOB and cough. CV: Denies palpitations and CP GI: Denies abdominal pain, nausea, vomiting and diarrhea. : Denies dysuria and urinary frequency. MSK: Denies new myalgia and joint pain. SKIN: Denies rash and pruritus. NEUROLOGICAL: Denies headache PSYCHIATRIC: Denies recent changes in mood. PHYSICAL EXAM: GENERAL: Alert and oriented x 3. NAD EYES: EOMI. Anicteric. HENT: Moist mucous membranes. No scleral icterus. LUNGS: Clear to auscultation bilaterally. CARDIOVASCULAR: Regular rate and rhythm. ABDOMEN: Soft, non-tender +bs EXTREMITIES: No edema. Non-tender. SKIN: No rashes or lesions. Warm. NEUROLOGIC: No focal neurological deficits. CN II-XII grossly intact PSYCHIATRIC: Cooperative. Appropriate mood and affect [facility] Medical History Pre-op examination Elevated cholesterol HTN (hypertension) Diabetes Myocardial infarction CAD (coronary artery disease) Surgical History H/O colonoscopy H/O heart artery stent H/O spinal fusion Family History Mother Colon cancer Father No problems noted. Social History Housing: House Alcohol intake: former Year quit: 2017 Patient Tobacco Use Status: Never used Tobacco e-Cigarette/Vaping Use: Never Used service: No Current occupational status: disabled and other Current occupation: Former [employer] Cognitive needs: No Hearing needs: No Vision needs: Yes Physical Exam Vital Signs: Last Vital Signs Pulse 85 03/13/24 13:55 BP 140/88 H 03/13/24 13:55 BMI result Body Mass Index 22.1 Results AMB Hemoglobin A1c AMB Hemoglobin A1c 11.4 % Last Edit by KATHIE Loza on 03/13/24 14:2 2 Results Reviewed Results Reviewed: Laboratory Last Values Glucose (Clinic) 375 mg/dL (60-115) H* 03/13/24 14:05 Hgb A1c (Clinic) 11.4 % (4.0-6.0) H 03/13/24 14:19 Assessment & Plan Assessment & Plan (1) DMII (diabetes mellitus, type 2): Code(s): E11.9 - Type 2 diabetes mellitus without complications Category: Medical Qualifiers: Diabetes mellitus terminal make up operator insulin use: without terminal make up operator use Diabetes mellitus complication status: with circulatory complication Diabetes mellitus complication detail: with other circulatory complications Qualified Code(s): E11.59 - Type 2 diabetes mellitus with other circulatory complications Plan: Uncontrolled. Discussed different treatment options with patient at length. Patient discussed medical history at length Will start actos 30mg daily. continue metformin, glipizide. Discussed potential insulin therapy however we will monitor how he does the farther out from steroids he is. Needs to having at least fasting blood glucose readings. supplies sent. Annual eye exam recommended. Orders: Orders AMB Hemoglobin A1c Today E11.59 - Type 2 diabetes mellitus with other circulatory complications Medications: New pioglitazone 30 mg PO DAILY 90 tabs 3RF blood-glucose meter As directed 1 ea 0RF E11.59 - Type 2 diabetes mellitus with other circulatory complications blood sugar diagnostic once daily 100 ea 3RF E11.59 - Type 2 diabetes mellitus with other circulatory complications blood sugar diagnostic test strips once daily 100 ea 3RF E11.59 - Type 2 diabetes mellitus with other circulatory complications lancets test once daily 100 ea 3RF E11.59 - Type 2 diabetes mellitus with other circulatory complications Coding Level of Care Code Est Pt Level 5 (10882) Diagnoses Type 2 diabetes mellitus with other circulatory complication, without long-term current use of insulin E11.59 Diabetes mellitus custodial insulin use: without custodial use Diabetes mellitus complication status: with circulatory complication Diabetes mellitus complication detail: with other circulatory complications Time Spent (min) 53
[2024-03-13 13:55] VITALS: BP 140/88; PULSE 85; BMI 22.1
[2024-03-13 14:17] LABS: Glucose, Whole Blood 375 mg/dL (60-115)
== END 2024-03-13 14:54 | disposition home or self-care (01) ==
PROVIDERS: PCP Internal Medicine; Visit Provider Internal Medicine
DX: E11.59 Type 2 diabetes mellitus with other circulatory complications (principal); I25.10 Atherosclerotic heart disease of native coronary artery without angina pectoris
CPT/HCPCS: 99215

== ENCOUNTER → 2024-03-13 13:49 | Outpatient (BNVA) | payer MEDICARE, SELFPAY | PROVIDERS: PCP Internal Medicine; Visit Provider Internal Medicine | DX: E11.59 Type 2 diabetes mellitus with other circulatory complications (principal) | CPT/HCPCS: 82947; 83036; 99212 ==

== ENCOUNTER 2024-04-03 15:04 | Outpatient (AMB) | payer MEDICARE, SELFPAY ==
[2024-04-03 15:07] VITALS: BP 148/90; PULSE 92; BMI 21.8
--- NOTE | 2024-04-03 15:07 | A.OFFVIS_ITS ---
Vital Signs 04/03/24 15:07 Height 5 ft 10 in Weight 152 lb 1.903 oz BMI 21.8 BP 148/90 H Blood Pressure Location Rt brachial Position Sitting Pulse 92 Pulse Source Pulse Oximeter Intake Visit Reasons: T2DM/LVM Intake Note: Patient presents today for a follow-up on Type 2 Diabetes Mellitus: Last Diabetic eye exam was on: 4 months ago, no diabetic retinopathy Last Podiatry exam was on: Does not see a Call Center Director Most recent HbA1c: 11.4%, 03/13/2024, 12.1%, 04/03/2024 Random Glucose- 249 mg/dL, Today Residential Care Officer Required: No Accompanied by: Self / Same As Patient Allergies No Known Drug Allergies Allergy (Unknown, Verified 04/03/24 15:07) Unknown HPI Comments Details: The patient is a 63 year old male with uncontrolled type 2 diabetes presenting for consultation Medical history: bipolar disorder, IBD-Crohns, CAD s/p PCI Diagnosed with diabetes since 1994. Current medication: Glipizide ER 10mg twice daily, metformin 1000mg twice daily, Actos 30mg daily (started one month ago) Insists on POC A1C today which is 12.1%. POC A1C one month ago 11.4%. Despite trying rx for multiple CGMs patients insurance not covering. He says they will not cover traditional glucometers either IBD recently diagnosed. He was hospitalized at the beginning of November with colitis, then diagnosed with Crohns. His medications are being adjust. Trying to decrease steroids as he continues [facility]. Says A1C has been out of control since all the steroids he has needed since November. He is going totally off steroids this week. Micro/macrovascular complications: CAD Denies hypoglycemia Denies polyuria, polydipsia ROS CONSTITUTIONAL: Denies weight loss, fever and chills. HEENT: Denies changes in vision and hearing. RESPIRATORY: Denies SOB and cough. CV: Denies palpitations and CP GI: Denies abdominal pain, nausea, vomiting and diarrhea. : Denies dysuria and urinary frequency. MSK: Denies new myalgia and joint pain. SKIN: Denies rash and pruritus. NEUROLOGICAL: Denies headache PSYCHIATRIC: Denies recent changes in mood. PHYSICAL EXAM: GENERAL: Alert and oriented x 3. NAD EYES: EOMI. Anicteric. HENT: Moist mucous membranes. No scleral icterus. LUNGS: Clear to auscultation bilaterally. CARDIOVASCULAR: Regular rate and rhythm. ABDOMEN: Soft, non-tender +bs EXTREMITIES: No edema. Non-tender. SKIN: No rashes or lesions. Warm. NEUROLOGIC: No focal neurological deficits. CN II-XII grossly intact PSYCHIATRIC: Cooperative. Appropriate mood and affect [facility] Medical History Pre-op examination Elevated cholesterol HTN (hypertension) Diabetes Myocardial infarction CAD (coronary artery disease) Surgical History H/O colonoscopy H/O heart artery stent H/O spinal fusion Family History Mother Colon cancer Father No problems noted. Social History Housing: House Alcohol intake: former Year quit: 2017 Patient Tobacco Use Status: Never used Tobacco e-Cigarette/Vaping Use: Never Used service: No Current occupational status: disabled and other Current occupation: Former [employer] Cognitive needs: No Hearing needs: No Vision needs: Yes Physical Exam Vital Signs: Last Vital Signs Pulse 92 04/03/24 15:07 BP 148/90 H 04/03/24 15:07 BMI result Body Mass Index 21.8 Results AMB Hemoglobin A1c AMB Hemoglobin A1c 12.1 % Last Edit by KATHIE Loza on 04/03/24 15:4 7 Patient request to have a repeat A1c Results Reviewed Results Reviewed: Laboratory Last Values Glucose (Clinic) 249 mg/dL (60-115) H 04/03/24 15:13 Hgb A1c (Clinic) 12.1 % (4.0-6.0) H 04/03/24 15:46 Assessment & Plan Assessment & Plan (1) DMII (diabetes mellitus, type 2): Code(s): E11.9 - Type 2 diabetes mellitus without complications Category: Medical Qualifiers: Diabetes mellitus complication detail: with other circulatory complications Diabetes mellitus complication status: with circulatory complication Diabetes mellitus custodial insulin use: without custodial use Qualified Code(s): E11.59 - Type 2 diabetes mellitus with other circulatory complications Plan: Uncontrolled. Consider starting insulin. Needs diabetic education. He can not get his glucose monitoring going at home and hasnt brought his supplies Continue current medications (2) CAD (coronary artery disease): Code(s): I25.10 - Atherosclerotic heart disease of [place] coronary artery without angina pectoris Category: Medical Qualifiers: Associated angina: without angina Coronary Disease-Associated Artery/Lesion type: [place] artery [place] vs. transplanted heart: [place] heart Qualified Code(s): I25.10 - Atherosclerotic heart disease of [place] coronary artery without angina pectoris Plan: Secondary prevention. Improve glycemic control Orders: Orders AMB Hemoglobin A1c 04/03/24 E11.59 - Type 2 diabetes mellitus with other circulatory complications Referrals Diabetes Education Referral E11.59 - Type 2 diabetes mellitus with other circulatory complications Coding Level of Care Code Est Pt Level 4 (60183) Diagnoses Type 2 diabetes mellitus with other circulatory complication, without long-term current use of insulin E11.59 Diabetes mellitus complication detail: with other circulatory complications Diabetes mellitus complication status: with circulatory complication Diabetes mellitus ocean transportation intermediary insulin use: without custodial use Coronary artery disease involving [place] coronary artery of [place] heart without angina pectoris I25.10 Associated angina: without angina Coronary Disease-Associated Artery/Lesion type: [place] artery [place] vs. transplanted heart: [place] heart
[2024-04-03 15:18] LABS: Glucose, Whole Blood 249 mg/dL (60-115)
== END 2024-04-03 15:42 | disposition home or self-care (01) ==
PROVIDERS: PCP Internal Medicine; Visit Provider Internal Medicine
DX: E11.59 Type 2 diabetes mellitus with other circulatory complications (principal); I25.10 Atherosclerotic heart disease of native coronary artery without angina pectoris

== ENCOUNTER → 2024-04-03 15:04 | Outpatient (BNVA) | payer MEDICARE, SELFPAY | PROVIDERS: PCP Internal Medicine; Visit Provider Internal Medicine | DX: E11.59 Type 2 diabetes mellitus with other circulatory complications (principal); I25.10 Atherosclerotic heart disease of native coronary artery without angina pectoris | CPT/HCPCS: 82947; 83036; 99212 ==

== ENCOUNTER 2024-05-08 08:25 | Outpatient (AMB) | payer MEDICARE, SELFPAY ==
--- NOTE | 2024-05-08 08:23 | A.OFFVIS_ITS ---
Vital Signs 3 05/08/24 08:35 Height 5 ft 10 in Weight 152 lb 1.903 oz BMI 21.8 BP 130/70 Blood Pressure Location Rt brachial Position Sitting Pulse 92 Pulse Source Pulse Oximeter Intake Visit Reasons: T2DM/LVM Intake Note: Patient presents today for a follow-up on Type 2 Diabetes Mellitus: Patient reporting episodes of hypoglycemia. Last Diabetic eye exam was on: 4 months ago, no diabetic retinopathy Last Podiatry exam was on: Does not see a Contact Lens Blocker And Cutter Most recent HbA1c: 11.4%, 03/13/2024, 12.1%, 04/03/2024 Random Glucose- 90 mg/dL, Today Senior Accountant Cpa Required: No Accompanied by: Self / Same As Patient Allergies No Known Drug Allergies Allergy (Unknown, Verified 04/03/24 15:07) Unknown HPI Comments Details: The patient is a 63 year old male with uncontrolled type 2 diabetes presenting for consultation Medical history: bipolar disorder, IBD-Crohns, CAD s/p PCI Diagnosed with diabetes since 1994. Current medication: Glipizide ER 10mg twice daily, metformin 1000mg twice daily, Actos 30mg daily POC A1C one month ago 12.1%-04/03/2024 Since being off prednisone his glucose has become increasingly variable. He is testing 6 times daily and logging them 3 times daily. He is having frequent hypoglycemia. 04/28-149. 67. 143 04/29-133. 88. 105 04/30-130. 127. 91 05/01-159. 139. 133 05/02 - . 129. 166 05/03 - . 110 154 05/04 -. 131. 171 05/05 133 170 100 81 90 74 IBD recently diagnosed. He was hospitalized at the beginning of November with colitis, then diagnosed with Crohns. His medications are being adjust. Off steroids, was not good on humira. Doing really well on rinvoq. Micro/macrovascular complications: CAD Denies hypoglycemia Denies polyuria, polydipsia ROS CONSTITUTIONAL: Denies weight loss, fever and chills. HEENT: Denies changes in vision and hearing. RESPIRATORY: Denies SOB and cough. CV: Denies palpitations and CP GI: Denies abdominal pain, nausea, vomiting and diarrhea. : Denies dysuria and urinary frequency. MSK: Denies new myalgia and joint pain. SKIN: Denies rash and pruritus. NEUROLOGICAL: Denies headache PSYCHIATRIC: Denies recent changes in mood. PHYSICAL EXAM: GENERAL: Alert and oriented x 3. NAD EYES: EOMI. Anicteric. HENT: Moist mucous membranes. No scleral icterus. LUNGS: Clear to auscultation bilaterally. CARDIOVASCULAR: Regular rate and rhythm. ABDOMEN: Soft, non-tender +bs EXTREMITIES: No edema. Non-tender. SKIN: No rashes or lesions. Warm. NEUROLOGIC: No focal neurological deficits. CN II-XII grossly intact PSYCHIATRIC: Cooperative. Appropriate mood and affect [facility] Medical History Pre-op examination Elevated cholesterol HTN (hypertension) Diabetes Myocardial infarction CAD (coronary artery disease) Surgical History H/O colonoscopy H/O heart artery stent H/O spinal fusion Family History Mother Colon cancer Father No problems noted. 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 Cognitive needs: No Hearing needs: No Vision needs: Yes Physical Exam Vital Signs: Last Vital Signs Pulse 92 05/08/24 08:35 BP 130/70 05/08/24 08:35 BMI result Body Mass Index 21.8 Results Reviewed Results Reviewed: Laboratory Last Values Glucose (Clinic) 90 mg/dL (60-115) 05/08/24 08:38 Assessment & Plan Assessment & Plan (1) DMII (diabetes mellitus, type 2): Code(s): E11.9 - Type 2 diabetes mellitus without complications Category: Medical Qualifiers: Diabetes mellitus chcf insulin use: without exterminator helper use Diabetes mellitus complication status: with circulatory complication Diabetes mellitus complication detail: with other circulatory complications Qualified Code(s): E 11.59 - Type 2 diabetes mellitus with other circulatory complications Plan: Increasingly brittle, increased hypoglycemia. Dangerous not to be on CGM CGM ordered Will see early childhood special educator shortly Follow up 2 months (2) Hypoglycemia: Code(s): E16.2 - Hypoglycemia, unspecified Category: Medical Plan: see above (3) Brittle diabetes mellitus: Code(s): E10.9 - Type 1 diabetes mellitus without complications Category: Medical Plan: see above Medications: New 2 glipizide ER 5 mg PO DAILY 90 tabs 3RF Discontinued 2 prednisone Discontinued Reason: Doctor's Order 40 mg (2 x 20 mg) PO DAILY 60 tabs 3RF K52.9 - Noninfective gastroenteritis and colitis, unspecified adalimumab Discontinued Reason: Doctor's Order inject 180mg day 1, 80 mg day 15, then 40mg every 2 weeks 6 ea 0RF adalimumab (Humira(CF) Pen) Discontinued Reason: Doctor's Order 40 mg (0.4 mL) subcut Q2W 2 ea 4RF Coding Level of Care Code Est Pt Level 5 (15768) Diagnoses Type 2 diabetes mellitus with other circulatory complication, without long-term current use of insulin E11.59 Diabetes mellitus exterminator helper insulin use: without exterminator helper use Diabetes mellitus complication status: with circulatory complication Diabetes mellitus complication detail: with other circulatory complications Hypoglycemia E16.2 Brittle diabetes mellitus E10.9 Time Spent (min) 47
[2024-05-08 08:35] VITALS: BP 130/70; PULSE 92; BMI 21.8
[2024-05-08 08:47] LABS: Glucose, Whole Blood 90 mg/dL (60-115)
== END 2024-05-08 09:38 | disposition home or self-care (01) ==
LOC: HO.ENCR 08:26
PROVIDERS: PCP Internal Medicine; Visit Provider Internal Medicine
DX: E11.59 Type 2 diabetes mellitus with other circulatory complications (principal); E16.2 Hypoglycemia, unspecified

== ENCOUNTER 2024-05-08 08:25 | Outpatient (AMB) | payer MEDICARE, SELFPAY ==
--- NOTE | 2024-05-08 09:17 | MHC.AMDMED ---
Intake Intake Visit Reasons: [id number] Director Of Enrollment Required: No Accompanied by: Self / Same As Patient Allergies No Known Drug Allergies Allergy (Unknown, Verified 04/03/24 15:07) Unknown HPI Comprehensive Diabetes Asmnt Most Recent Diabetes Results: Microalb/Creat Ratio 7.3 ug/mg cr 02/21/22 Cholesterol 111 mg/dL 02/21/22 HDL Cholesterol 41 mg/dL 02/21/22 Triglycerides 96 mg/dL 02/21/22 Creatinine 0.81 mg/dL (0.5-1.4) 02/21/22 Blood Urea Nitrogen 17 mg/dL (9-16) H 02/21/22 Sodium 141 mmol/L (135-145) 02/21/22 Potassium 4.1 mmol/L (3.3-5.1) 02/21/22 Chloride 104 mmol/L (96-108) 02/21/22 Carbon Dioxide 26 mmol/L (22-29) 02/21/22 Calcium 9.6 mg/dL (8.4-10.2) 02/21/22 AST 14 U/L (5-37) 02/21/22 ALT 15 U/L (0-40) 02/21/22 Total Protein 6.9 g/dL (6.5-8.0) 02/21/22 Albumin 4.4 g/dL (3.5-5.0) 02/21/22 [facility] Medical History Pre-op examination Elevated cholesterol HTN (hypertension) Diabetes Myocardial infarction CAD (coronary artery disease) Surgical History H/O colonoscopy H/O heart artery stent H/O spinal fusion Family History Mother Colon cancer Father No problems noted. 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 Cognitive needs: No Hearing needs: No Vision needs: Yes Assessment & Plan Assessment & Plan (1) DMII (diabetes mellitus, type 2): Code(s): E11.9 - Type 2 diabetes mellitus without complications Qualifiers: Diabetes mellitus pathology laboratory aides teacher insulin use: without pathology laboratory aides teacher use Diabetes mellitus complication status: with circulatory complication Diabetes mellitus complication detail: with other circulatory complications Qualified Code(s): E11.59 - Type 2 diabetes mellitus with other circulatory complications Plan: CGM Info Instructed Pt on what CGM can and can't do CGM Can: Give Pt minute by minute reading of glucose levels Displays glucose trend arrows that represents the direction glucose levels are fluctuating Give insight on decisions about how to dose insulin CGM cannot: Improve glucose control on its own Completely eliminate the need for all finger sticks Make dosing decision for you CGM is the reading of glucose in the interstitial fluid not actual blood glucose, finger sticks are still necessary when Pt's symptom?s do not match sensor reading and if sensors prompts Pt to do a fingerstick Reviewed delay of CGM from fingersticks Reminded pt that if symptoms do not match sensor still needs to check fingersticks. While speaking to patient regarding proper treatment for hypoglycemia Patient became very agitated when he was told he should not use chocolate or not to treat hypoglycemia because protein and fat can slow down increasing glucose level Patient stated that provider had told him to by candy bars to treat low blood sugar, patient proceeded to call me a liar, threatened to solve this legally Then left office to find provider, security was called. Pt left office Portions of this note were created using voice recognition software, please excuse any words or phrases that may have been misinterpreted. Coding Level of Care Code Est Pt Level 1 (34148) Diagnoses Type 2 diabetes mellitus with other circulatory complication, without long-term current use of insulin E11.59 Diabetes mellitus penitentiary insulin use: without pathology laboratory aides teacher use Diabetes mellitus complication status: with circulatory complication Diabetes mellitus complication detail: with other circulatory complications
== END 2024-05-08 09:40 | disposition home or self-care (01) ==
LOC: HO.ENCR 08:26
PROVIDERS: PCP Internal Medicine; Visit Provider Registered Nurse Diabetes Educator
DX: E11.59 Type 2 diabetes mellitus with other circulatory complications (principal)

== ENCOUNTER → 2024-05-08 08:25 | Outpatient (BNVA) | payer MEDICARE, SELFPAY | PROVIDERS: PCP Internal Medicine; Visit Provider Registered Nurse Diabetes Educator | DX: E11.59 Type 2 diabetes mellitus with other circulatory complications (principal); E11.65 Type 2 diabetes mellitus with hyperglycemia; E16.2 Hypoglycemia, unspecified; Z79.84 Long term (current) use of oral hypoglycemic drugs | CPT/HCPCS: 82947; 99211; 99212 ==

== ENCOUNTER 2024-06-18 11:46 | Outpatient (AMB) | payer MEDICARE, SELFPAY ==
--- NOTE | 2024-06-18 11:48 | A.OFFVIS_ITS ---
Vital Signs 06/18/24 11:54 Height 5 ft 10 in Weight 154 lb 12.232 oz BMI 22.2 BP 128/83 Blood Pressure Location Rt brachial Position Sitting Pulse 71 Intake Visit Reasons: Follow up 3 months Chron's disease Intake Note: Patient in office today in follow up of Chron's disease. CC: Patient reports doing well and denies having any new GI concerns today. Inform[employer] Developer Required: No Accompanied by: Self / Same As Patient Allergies No Known Drug Allergies Allergy (Unknown, Verified 04/03/24 15:07) Unknown HPI HPI Follow up 3 months Chron's disease: Details: Assessment & Plan (1) IBD (inflammatory bowel disease): Code(s): K52.9 - Noninfective gastroenteritis and colitis, unspecified Category: Medical Plan Today Alexander has to 40 mg syringes with him so we will do injection teaching with 1 of them and then have him give the other 1 so that he feels ready to give his 40 mg dose in 2 weeks. He has been feeling well and has had no diarrhea and no adverse reactions to the initial injections. He feels much better today about giving himself the injections and since he brought his cheat her she is able to see the window and tell went to let go of the syringe. After his next injection we will cut back to 1 budesonide a day. He has been taking 2 a day as he already decreased from 3 a day and he had stopped his mesalamine about 4-6 weeks ago. He will go to 1 tablet for 2 weeks and then hopefully he will be completely off the steroid. This is important because he is also a diabetic and he has had some increase in his blood sugars with the steroid therapy despite the sparing affects of the budesonide. I wrote a letter to his primary care provider about the steroid therapy as it does not seem that he was aware of what Entocort was and how it would be affecting Alexander's diabetes. He is eager to start Alexander on a new medication and I would urge them to put this off until he is completely off of the steroids because he likely will stabilize back to his pretreatment normals once this is out of his system. Return office visit in 2 weeks Medications: Refilled adalimumab (Humira(CF) Pen) inject one - 40 mg/0.4 mL pen every 2 weeks subcut 2 ea 0RF CORRESPONDENCE On 06/13/24 @ 12:41 Hayde Aviles Wrote To Hayde vAiles (2) Ok, tell Alexander to start cutting the tablets in half to see if this helps, or alternatively, take a whole tablet but every other day. On 06/13/24 @ 12:07 Deborah Suresh Wrote To Hayde Aviles I spoke w[facility] and it looks like patient recently had a delivery for the 45mg dose. It cannot be filled until the . On 06/13/24 @ 10:49 Hayde Aviles Wrote To Deborah Suresh Bud, can we see if we can get him the 30 mg dose? I want to try to see if he will stabilize on a lower dose. On 06/10/24 @ 08:06 Deborah Suresh Wrote To Hayde Aviles have you spoken w/ Alexander? I know he often contacts you using different methods of communication. On 05/28/24 @ 09:04 Hayde Aviles Wrote To Alexander Anton HI, sorry my was in the hospital so I have been behind responding to patient carries. Indeed, there is no official report of the symptoms she were describing, but when I go on to patient discussion groups there is quite a lot of report of gas and bloating. One patient said that this was help if he did not eat anything 2 hours before or 2 hours after dosing his medication. Also, this may be dose dependent and may get better as we decrease your dose after we get the loading dose completed. I am sorry I do not have any better information for you as it seems like this is a new side effect and sometimes side effects like this due crop up that do not present in the initial clinical trials of a medication because clinical trials a relatively short and with a relatively small group of affected patients. I think we will have to re-evaluate this as we get you on to your stable dose and decide what to do going forward. It is a lso possible that your bowels are simply readjusting to better digestion. You may be helped by a probiotic supplement for example. On 05/23/24 @ 08:49 Alexander Anton (Regarding Self / Same As Patient) Wrote To TraciSeptember Heltravis. It?s the . Hope alls well. Is lotsa gas a thing with Rinvoq? I mean it?s not a little. At least cramps are mostly gone. Occasionally diarrhea. But the Gas is insane. Have you heard this ??? TODAY'S VISIT His dtr's fiance committed SI by shooting himself in front of her! Alexander was first on scene even before the police and his dtr moved in with him and this is stressful for him. His bull benny also has a head tumor and Alexander says the gas from the RInvoq is so bad and malodorous that he won't go to the dentist r/t embarrassment. We discuss Odafree and decreasing tyhe dose, but he has not done this yet. However, overall his sx control is much better on the Rinvoq in terms of the diarrhea and abd pain. He is seeing Gisselle Kim in Endcrinology and he has a glucose monitoring system now. ROV 3 mos and he will portal me in a few weeks. [facility] Medical History (Updated 06/18/24 @ 11:48 by SINDHU Sebastian) Colitis IBD (inflammatory bowel disease) Pre-op examination Elevated cholesterol HTN (hypertension) Diabetes Myocardial infarction CAD (coronary artery disease) Surgical History H/O colonoscopy H/O heart artery stent H/O spinal fusion Family History Mother Colon cancer Father No problems noted. 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 Cognitive needs: No Hearing needs: No Vision needs: Yes Review of Systems Const Denies fatigue, Denies fever(s), Denies night sweats, Denies poor appetite and Denies weight loss ENT Reports Normal hearing present, Denies dental pain, Denies dysphagia, Denies hearing loss, Denies mouth pain, Denies odynophagia, Denies throat swelling, Denies tongue swelling and Reports other (Dentition adequate) Card Reports no additional complaints Resp Reports no additional complaints GI Details: Denies abdominal pain, Denies melena, Reports bloating, Denies hematochezia, D enies constipation, Denies GI cramping, Denies dysphagia, Reports excessive flatus, Denies early satiety, Denies heartburn, Denies diarrhea, Denies nausea, Denies odynophagia, Denies vomiting and Denies hematemesis Skin/Breast Denies pruritus, Denies lesions, Denies rash and Denies jaundice Neuro Reports Normal hearing present and Denies Abnormal speech present Psych Reports anxiety Endo Denies fatigue Aller/Immun Denies throat swelling and Denies tongue swelling Physical Exam Vital Signs: Last Vital Signs Pulse 71 06/18/24 11:54 BP 128/83 06/18/24 11:54 BMI result Body Mass Index 22.2 Const General: cooperative, no acute distress, well developed and well groomed Nutritional Appearance: average body habitus and well nourished Orientation/consciousness: oriented to person, oriented to place and oriented to time Limitations: No language barrier HEENT Head: Yes normocephalic and Yes atraumatic Eyes General: appearance normal, both eyes and all related structures Pupils: Equal, round and reactive pupils present Neck Neck: Yes normal visual inspection and Yes no lymphadenopathy Thyroid: Thyroid normal Resp Effort & Inspection: normal respiratory effort and able to speak in complete sentences Auscultation: clear to auscultation bilaterally Cardio Rate: regular rate Rhythm: regular rhythm Heart sounds: Normal, physiologic split S2 sound present Peripheral pulses: radial pulses present and posterior tibial pulses present GI Inspection: No distended and No Abdominal panniculus present Palpation (GI): Soft to palpation, nontender, no guarding, not rigid and No hepatosplenomegaly present Percussion: Yes normal to percussion Auscultation: normal bowel sounds Rectal Exam - Male: Yes deferred Skin General skin exam: no rashes or lesions noted, turgor normal, skin not dry, no jaundice, No spider nevi and no striae Rashes: no rashes Nails: normal Neuro General: oriented to person, oriented to place and oriented to time Cranial nerves: Yes Equal, round and reactive pupils present and Yes Normal hearing present Speech: No Abnormal speech present Extrem General: Yes normal to inspection, No clubbing, No cyanosis and No edema Psych Appearance: grossly normal and well kempt Mental Status: mental status grossly normal Speech and movement: Normal speech and movement present Affect: normal affect Attitude: cooperative Thought process: Normal thought process present and not confabulating Thought content: Normal thought content present Insight: Limited insight present (Psych) Judgement: Limited judgement present (Psych) Assessment & Plan Assessment & Plan (1) Crohn's disease: Code(s): K50.90 - Crohn's disease, unspecified, without complications Category: Medical Plan His dtr's fiance committed SI by shooting himself in front of her! Alexander was first on scene even before the police and his dtr moved in with him and this is stressful for him. His bull benny also has a head tumor and Alexander says the gas from the RInvoq is so bad and malodorous that he won't go to the dentist r/t embarrassment. We discuss Odafree and decreasing tyhe dose, but he has not done this yet. However, overall his sx control is much better on the Rinvoq in terms of the diarrhea and abd pain. He is seeing Gisselle Kim in Endcrinology and he has a glucose monitoring system now. ROV 3 mos and he will portal me in a few weeks. Coding Level of Care Code Est Pt Level 3 (22371) Diagnoses Crohn's disease K50.90
--- OUTSIDE RECORDS SUMMARY | 2024-06-18 11:48 | XMS_ITS ---
Author Organization [facility] Address [address], [place] [id number] Care Team Providers Care Relationship Executive Name Role Phone CONNOR FORD Primary Care Provider [phone] Rachael Benjamin [phone] REASON FOR REFERRAL Reason Please refer to [facility] for pancolitis. Recent ED visit with CT results. Thank you Diagnosis 1 Pancolitis (K51.00) [facility] Referring Provider First Name Rachael Referring Provider Last Name Sourav Referring Provider Speciality Nurse Prac titioner [facility] Referred Address [address], [id number], Referred Provider Specialty Gastroentero logy General Notes CHANCE LU 10/31 03:43:54 PM >BMP Form, Referral for consultation, OV Note, CT Scan and ER Notes faxed to [facility] [phone] AMY 12/05/2023 10:20:19 AM >Referral, CT Scan, ER Notes all faxed to [facility] as patients insurance was not taken at [facility]. [phone]. Referral Priority Routine REASON FOR VISIT GI Referral MEDICATIONS Medication SIG (Take, Route, Frequency, Duration) Notes Start Date End Date Status Metoprolol Tartrate 25 MG 1 tablet with food Orally Twice a day for 90 days Active Lipitor 80 MG 1 tablet Orally Once a day for 90 days Active Encounters Encounter Location Date Provider [facility] [address] [id number] 11/28/2023 Rachael Benjamin Atherosclerotic hear t disease of [place] coronary artery without angina pectoris I25.10 ; Coronary atherosclerosis due to lipid rich plaque I25.83 and Pancolitis K51.00 ASSESSMENTS Encounter Date Diagnosis Assessment Notes Treatment Notes Treatment Clinical Notes Section Notes 11/28/2023 Atherosclerotic heart disease of [place] coronary artery without angina pectoris (ICD-10 - I25.10) 11/28/2023 Coronary atherosclerosis due to lipid rich plaque (ICD-10 - I25.83) 11/28/2023 Pancolitis (ICD-10 - K51.00) PLAN OF TREATMENT Medication Medication Name Sig Start Date Stop Date Notes Metoprolol Tartrate 25 MG 1 tablet with food Orally Twice a day for 90 days Lipitor 80 MG 1 tablet Orally Once a day for 90 days Referrals Referral Date Details Please refer to [facility] for pancolitis. Recent ED visit with CT results. Thank you , [address] [place], [place] [address], [id number], @[employer], Progress Notes * DAMEON SINCLAIRDOB:1960 (63 yo M)Acc No.[id number]:11/28/2023 Patient:??WADE SINCLAIRLEY :1960?Age:63 Y?Sex:Shane guevara Phone: Address:[address] [place] [address] * Refills?? Refill Metoprolol Tartrate Tablet, 25 MG, Orally, 180 Tablet, 1 tablet with food, Twice a day, 90 days, Refills=1 Refill Lipitor Tablet, 80 MG, Orally, 90 Tablet, 1 tablet, Once a day, 90 days, Refills=1 Subjective: * Chief Complaints: * ?GI Referral * Medical History:?? * Surgical History:?? * Hospitalization/Major Diagno stic Procedure:?? * Medications:?? Objective: Assessment: * Assessment: 1.??Atherosclerotic heart di sease of [place] coronary artery without angina pectoris - I25.10??2.??Coronary atherosclerosis due to lipid rich plaque - I25.83??3.??Pancolitis - K51.00?? Plan: * Treatment: 2.??Coronary atherosclerosis due to lipid rich plaque?? Refill Lipitor Tablet, 80 MG, 1 tablet, Orally, Once a day, 90 days, 90 Tablet, Refills 1.? 3.??Pancolitis? Referral To:Gastroenterology ?Reason:Please refer to [facility] for pancolitis. Recent ED visit with CT results. Thank you * Procedure Codes:?? * true * Date:?? Consultation Request Notes Referral Date Referring Provider Referred Provider Not es 11/28/2023 Rachael Benjamin , Please refer to [facility] for pancolitis. Recent ED visit with CT results. Thank you
--- OUTSIDE RECORDS SUMMARY | 2024-06-18 11:48 | XMS_ITS ---
Author Organization [facility] Address [address] [place] [id number] Care Team Providers Care Firmware Architect Name Role Phone CONNOR FORD Primary Care Provider Rachael Benjamin Unavailable [phone] ALLERGIES No Known Allergies REASON FOR VISIT f/u labs & GI bleed MEDICATIONS Medication SIG (Take, Route, Frequency, Duration) Notes Start Date End Date Status Metoprolol Tartrate 25 MG 1 tablet with food Orally Twice a day for 90 days Active Aspirin 81 81 MG 1 tablet Orally Once a day for 90 days Active metFORMIN HCl 1000 MG TAKE 1 TABLET BY M OUTH TWICE DAILY WITH MEALS for 100 Active glipiZIDE ER 10 MG TAKE 1 TABLET BY JENNA TH TWICE DAILY for 100 Active Lipitor 80 MG 1 tablet Orally Once a day for 90 days Active SOCIAL HISTORY Tobacco Use: Social History Observation Description Date Details (start date - stop date) Former Smoker NA - NA Sex Assigned At : Social History Observation Description Sex Assigned At Unknown Tobacco Use/Smoking Question Answer Notes Tobacco use: former smoker How long has it been since y ou last smoked? > 10 years Additional Findings: Tobacco User Modera te cigarette smoker (10-19 cigs/day) Sexual History Question Answer Notes Had sex in the past 12 months (vaginal, oral, or anal)? Yes with Women only Section Notes: [place] [facility] [place]. Patient is on disability. VITAL SIGNS Blood pressure systolic 124 mm Hg 11/08/19 24 Blood pressure diastolic 62 mm Hg 024 Heart Rate 78 /min 11/08/2023 Height 70 in 11/08/2023 Weight 155.2 lbs 11/08/2023 BMI 22.27 kg/m2 11/08/2023 Oximetry 96 % 11/08/2023 Height-cm 177.8 cm 11/08/2023 Weight-kg 70.4 kg 11/08/2023 Encounters Encounter Location Date Provider Diagnosis [address] [place] [id number] 11/08/2023 Rachael Benjamin PLAN OF TREATMENT No Information Progress Notes * DAMEON SINCLAIRDOB:1960 (63 yo M)Acc No.[id number]:11/08/2023 Progress Notes Patient:??DAMEON SINCLAIR Provider:??Rachael Benjamin DNP :1960?Age:63 Y?Sex:Agustin le Date:11/08/2023 Phone: Address: [facility], [place] Pcp:CONNOR FORD Subjective: * Chief Complaints: * ?f/u labs & GI bleed * HPI: ?Patient Care Team:?Correctional Guard:??[facility]. Special Tax Auditor: Dr. Saroj [place]..?Visit info:? Dameon presents in the office today for a lab review. Patient is very upset and confused about being referred to [place] for 3 weeks of testing. ?He states that he also had a few days of diarrhea, one say it looked a little bloody. He states that he had the stomach bug and this has since resolved. ?Once provider entered room, he questioned why he was sent to Hematology in the first place. He states that the provider caused him unnecessary anguish by sending him to hematology without reviewing prior records. Provider attempted to discuss with patient that his prior records were not available and his labs were trended. There was a shared decision made with patient at a prior appointment to go to hematology to rule out further concern for his anemia, increased WBC, and weight loss. At that time patient agreed, however does not recall that conversation. ?Dameon would not allow provider to speak and continued to accuse the provider of wasting his time and how dissappointed he was in the care that he was receiving, as he expected better . Dameon began to raise his voice. Provider politely asked patient to not speak in that tone, he continued to raise his voice and disregard tone or volume of his voice. ?Dameon continued to tell the provider that the glass installer technician told him that his pcp didn't know what she was doing and advised him to seek alternate care. He would not allow provider to speak and continued to repeat himself. ?At this time, he was politely asked to leave the office- which he did. * Medical History:?? * Surgical History:??Spinal Fu gualberto 1989Colonoscopy oronary Stent 08/2020Vasectomy 1994 * Hospitalization/Major Diagno stic Procedure:?? * Family History:??Father: dec eased 59 yrs, Unknown.??Mother: 58 yrs, Unknown.?? * Social History:?Tobacco Use:??Tobacco Use/Smoking??Tobacco use:??former smoker,??How long has it been since you last smoked???> 10 years,??Additional Findings: Tobacco User??Moderate cigarette smoker (10-19 cigs/day).?Sexual History:??Sexual History??Had sex in the past 12 months (vaginal, oral, or anal)???Yes,??with??Women only.?Drugs/Alcohol:??Do you smoke marijuana?: Admits, Occasionally. Do you drink alcohol?: No. ?Miscellaneous:??Exercise: for 1-2 hours a day, 4-5 days a week. Enjoys weight lifting, bicycle, [employer]. 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 ?Lives in [place], [place] alone with his dog. Patient is on disability. * Medications:??TakingAspirin 81 81 MG Tablet Delayed Release 1 tablet Orally Once a day Metoprolol Tartrate 25 MG Tablet 1 tablet with food Orally Twice a day Lipitor 80 MG Tablet 1 tablet Orally Once a day glipiZIDE ER 10 MG Tablet Extended Release 24 Hour TAKE 1 TABLET BY MOUTH TWICE DAILY metFORMIN HCl 1000 MG Tablet TAKE 1 TABLET BY MOUTH TWICE DAILY WITH MEALS Medication List reviewed and reconciled with the patientTaking Aspirin 81 81 MG Tablet Delayed Release 1 tablet Orally Once a day Taking Metoprolol Tartrate 25 MG Tablet 1 tablet with food Orally Twice a day Taking Lipitor 80 MG Tablet 1 tablet Orally Once a day Taking glipiZIDE ER 10 MG Tablet Extended Release 24 Hour TAKE 1 TABLET BY MOUTH TWICE DAILY Taking metFORMIN HCl 1000 MG Tablet TAKE 1 TABLET BY MOUTH TWICE DAILY WITH MEALS Medication List reviewed and reconciled with the patient * Allergies:??N.K.D.A.no[Aller gies Verified] Objective: * Vitals:??BP:124/62mm Hg, HR: 78/min, Oxygen sat %:96%, Wt:155.2lbs, Wt-k.4 kg, Ht: 70 in, Ht-cm: 177.8 cm, BMI:22.27Index, Body Surface Area: 1.86. Assessment: Plan: * Treatment: * Procedure Codes:?? * Preventive Medicine:?Last CPE: 2022 DEXA: No Colonoscopy: Yes, 12/07/2022 - normal - return in 5 years Endocscopy: No COVID Vac: Yes, Boosted Flu Vac: Yes Shingles Vac: Yes (2) PV: No 03/16/23- Iron 39, RBC 4.51; Hgb 13.2; WBC 14.5; hsCRP 8.05; sed rate 17; Tcol 107; HDL 38; LDL 51; trigs 90; APO B 58; A1c 7.7%; glucose 101; Vitamin D 48.4 07/30/23- Iron 46; RBC 4.29; Hgb 12.4; WBC 14.0; hsCRP 4.77; sed rate 11; A1c 9.2%; glucose 243 11/02/23- WBC 13.6; A1c 8.3%; glucose 238. * Billing Information: * Visit Code:?? * Procedure Codes:?? * Sign off status: Completed true * Provider:??Rachael Benjamin DNP Date:??03/2024 History and Physical Notes * HPI (History of Present Illness) Category Sub-Category Detail Notes Category Not es Patient Care Team Correctional Guard: Dolores mantilla. Special Tax Auditor: Dr. Saroj Robles. Visit info Dameon presents in the office today for a lab review. Patient is very upset and confused about being referred to [facility] for 3 weeks of testing. He states that he also had a few days of diarrhea, one say it looked a little bloody. He states that he had the stomach bug and this has since resolved. Once provider entered room, he questioned why he was sent to Hematology in the first place. He states that the provider caused him unnecessary anguish by sending him to hematology without reviewing prior records. Provider attempted to discuss with patient that his prior records were not available and his labs were trended. There was a shared decision made with patient at a prior appointment to go to hematology to rule out further concern for his anemia, increased WBC, and weight loss. At that time patient agreed, however does not recall that conversation. Dameon would not allow provider to speak and continued to accuse the provider of wasting his time and how dissappointed he was in the care that he was receiving, as he expected better . Dameon began to raise his voice. Provider politely asked patient to not speak in that tone, he continued to raise his voice and disregard tone or volume of his voice. Dameon continued to tell the provider that the glass installer technician told him that his pcp didn't know what she was doing and advised him to seek alternate care. He would not allow provider to speak and continued to repeat himself. At this time, he was politely asked to leave the office- which he did.
--- OUTSIDE RECORDS SUMMARY | 2024-06-18 11:49 | XMS_ITS ---
[facility] Organization [facility] Address [address] [place] [id number] Care Team Providers Care Parts Department Manager Name Role Phone CONNOR FORD Primary Care Provider [phone] Alanna Rachael Benjamin [phone] ALLERGIES No Known Allergies REASON FOR VISIT f/u labs MEDICATIONS Medication SIG (Take, Route, Frequency, Duration) Notes Start Date End Date Status metFORMIN HCl 1000 MG TAKE 1 TABLET BY M OUTH TWICE DAILY WITH MEALS for 100 Active Lipitor 80 MG 1 tablet Orally Once a day for 90 days Active glipiZIDE ER 10 MG TAKE 1 TABLET BY JENNA TH TWICE DAILY for 100 Active Aspirin 81 81 MG 1 tablet Orally Once a day for 90 days Active Metoprolol Tartrate 25 MG 1 tablet with food Orally Twice a day for 90 days Active SOCIAL [...] with Women only Section Notes: Lives in [facility] with his dog. Patient is on disability. Encounters Encounter [facility] Date [facility] [address] [id number] 11/06/2023 Rachael Benjamin PLAN OF TREATMENT No Information Progress Notes * DAMEON SINCLAIRDOB:1960 (63 yo M)Acc No.[id number]:11/06/2023 Progress Notes Patient:??DAMEON SINCLAIR Provider:??Rachael Benjamin DNP :1960?Age:63 Y?Sex:Shane guevara Date:11/06/2023 Phone: Address:[address] [place], [place] Pcp:CONNOR FORD Subjective: * Chief Complaints: * ?1. F/u labs. * HPI: ?Patient Care Team:?Analytics Intern:??[facility]. Relief Mate: Dr. Saroj [place]..?? * Medical History:??Diabetes, Coronary Artery Disease Stent placed, Angiogram. * Surgical History:??Spinal Fu gualberto 1989, Colonoscopy 11/2022, Coronary Stent 08/2020, Vasectomy 1994. * Family History:??Father: dec eased 59 yrs, [...] lifting, bicycle, [employer]. 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 ?Lives in [place], [place] alone with his dog. Patient is on disability. * Medications:??Taking Aspirin 81 81 MG Tablet Delayed Release 1 tablet Orally Once a day , Taking Metoprolol Tartrate 25 MG Tablet 1 tablet with food Orally Twice a day , Taking Lipitor 80 MG Tablet 1 tablet Orally Once a day , Taking glipiZIDE ER 10 MG Tablet Extended Release 24 Hour TAKE 1 TABLET BY MOUTH TWICE DAILY , Taking metFORMIN HCl 1000 MG Tablet TAKE 1 TABLET BY MOUTH TWICE DAILY WITH MEALS * Allergies:??N.K.D.A. Objective: Assessment: Plan: * Treatment: * Preventive Medicine:?Last CPE: 2022 DEXA: No [...] 4.77; sed rate 11; A1c 9.2%; glucose 243. * Billing Information: * Visit Code:?? * Procedure Codes:?? * Sign off status: Pending * Provider:??Rachael Benjamin DNP Date:??12/2023 History and Physical Notes * HPI (History of Present Illness) Category Sub-Category Detail Notes Category Not es Patient Care Team Analytics Intern: [facility] Chaim mantilla. Relief Mate: Dr. Saroj Robles.
--- OUTSIDE RECORDS SUMMARY | 2024-06-18 11:49 | XMS_ITS ---
Author Name [facility] Organization Unknown History of Medication Use Medication Directions Dispensed Refills Start Date End Date Stat No known medications No known medications 10/12/2023 active glipiZIDE (GLUCOTROL XL) ER 24 hr tablet 10 mg 10/12/2023 active aspirin 81 MG EC tablet Take 1 tablet (81 mg total) by mouth. 10/12/2023 active metFORMIN (GLUCOPHAGE) tablet 1000 mg 10/12/2023 active metoprolol tartrate (LOPRESSOR) 25 MG tablet 10/12/2023 active atorvastatin (LIPITOR) tablet 80 mg 10/12/2023 active Problems Problem Status Onset Date Problem Type Date of Resoluti on Source Iron deficiency anemia, unspecified iron deficiency anemia type active EncounterDiagnosisAct CTTJM H
--- OUTSIDE RECORDS SUMMARY | 2024-06-18 11:49 | XMS_ITS | Patient Health Record ---
Author Organization [facility] Address [address] [place], [place] [id number] Care Team Providers Care Para Operator Name Role Phone LILIANA CONNOR Primary Care Provider Rachael Benjamin Unavailable [phone] ALLERGIES No Known Allergies REASON FOR REFERRAL Reason Hematology for evalu ation of abnormal CBC. Consistent elevated WBC, anemia, and abnormal diff Please refer to Dr. Kuhn please attach all 3 CBC results with referral Diagnosis 1 Abnormal CBC (R79.89 ) Diagnosis 2 Other iron deficienc y anemia (D50.8) [facility] Referring Provider First Name Rachael Referring Provider Last Name Sourav Referring Provider Speciality Nurse Evelyn kaufman [facility] Referred Address [address] [place], [id number], Referred Provider Specialty Hematology General Notes PATTI BROOKS 0 08/03/2023 12:16:28 PM >appt request, demographics, referral, office note and labs faxed to [facility] with request to see Dr. Kuhn [phone] Referral Priority Routine Reason Please refer to [facility] for pancolitis. Recent ED visit with CT results. Thank you Diagnosis 1 Pancolitis (K51.00) [facility] Referring Provider First Name Rachael Referring Provider Last Name Sourav Referring Provider Speciality Nurse Evelyn kaufman [facility] Referred Address [address], [place],[id number], Referred Provider Specialty Gastroentero logy General Notes CHANCE LU 10/31 03:43:54 PM >BMP Form, Referral for consultation, OV Note, CT Scan and ER Notes faxed to [facility] [phone], CHANCE LU 12/05/2023 10:20:19 AM >Referral, CT Scan, ER Notes all faxed to [facility] as patients insurance was not taken at [facility]. [phone]. Referral Priority Routine MEDICATIONS Medication SIG (Take, Route, Frequency, Duration) Notes Start Date End Date Status Aspirin 81 81 MG 1 tablet Orally Once a day for 90 days Active Metoprolol Tartrate 25 MG 1 tablet with food Orally Twice a day for 90 days Active Lipitor 80 MG 1 tablet Orally Once a day for 90 days Active glipiZIDE ER 10 MG TAKE 1 TABLET BY JENNA TH TWICE DAILY for 100 Active metFORMIN HCl 1000 MG TAKE 1 TABLET BY M OUTH TWICE DAILY WITH MEALS for 100 Active SOCIAL HISTORY Tobacco Use: Social History [...] with Women only Section Notes: Lives in [facility] with his dog. Patient is on disability. Lives in [facility] with his dog. Patient is on disability. Lives in [facility] with his dog. Patient is on disability. Lives in [facility] with his dog. Patient is on disability. Lives in [facility] with his dog. Patient is on disability. Lives in [facility] with his dog. Patient is on disability. Lives in [facility] with his dog. Patient is on disability. Lives in [facility] with his dog. Patient is on disability. PROBLEMS Problem Type ICD Code Onset Dates Problem Status W/U Status Risk SNOMED Code Notes Problem Essential (primary) hypertension (I10) Active confirmed 41626261 Problem Atherosclerotic heart disease of [place] coronary artery without angina pectoris (I25.10) Active confirmed 179819931 Problem Coronary atherosclerosis due to lipid rich plaque (I25.83) Active confirmed 270707877216883 Problem Type 2 diabetes mellitus with hyperglycemia, without long-term current use of insulin (E11.65) Active confirmed 00392523 Problem Other iron deficiency anemia (D50.8) Active confirmed 09418027 Problem Abnormal CBC (R79.89) Active confirmed 289196911 VITAL SIGNS Heart Rate 78 /min 11/08/2023 Height-cm 177.8 cm 11/08/2023 Oximetry 96 % 11/08/2023 Blood pressure diastolic 62 mm Hg 11/08/2023 Weight-kg 70.4 kg 11/08/2023 Height 70 in 11/08/2023 Blood pressure systolic 124 mm Hg 11/08/2023 Weight 155.2 lbs 11/08/2023 BMI 22.27 kg/m2 11/08/2023 Encounters Encounter Location Date Provider Diagnosis [address] [id number] 06/26/[address] [id number] 07/17/[address] [id number] 11/06/[address] [id number] 08/01/2023 Rachael Benjamin Type 2 diabetes mellitus with hyperglycemia, without long-term current use of insulin E11.65 ; Other iron deficiency anemia D50.8 ; Abnormal CBC R79.89 ; Essential (primary) hypertension I10 ; Bilateral impacted cerumen H61.23 and Encounter to discuss test results Z71.[address] [id number] 08/09/2023 Rachael Benjamin Bilateral impacted cerumen H61.23 and Abnormal CBC R79.[address] [id number] 11/08/[address] [id number] 08/06/[address] [id number] 10/02/2023 Rachael Benjamin [address] [id number] 11/28/2023 Rachael Benjamin Atherosclerotic hear t disease of [place] coronary artery without angina pectoris I25.10 ; Coronary atherosclerosis due to lipid rich plaque I25.83 and Pancolitis K51.00 ASSESSMENTS Encounter Date Diagnosis Assessment Notes Treatment Notes Treatment Clinical Notes Section Notes 08/01/2023 Type 2 diabetes mellitus with hyperglycemia, without long-term current use of insulin (ICD-10 - E11.65) A1c is elevated Spent significant time discussing the risks of uncontrolled diabetes and when insulin dependence cannot not be reversed Encouraged nutritional counseling Dameon verbalized understanding of decreased sugar and carb diet Recommended starting Ozempic or Mounjaro Dameon states that he will consider this for next visit. 08/01/2023 Other iron deficiency anemia (ICD-10 - D50.8) Continued increased WBC with abnormal diff Concern for ongoing infection Will refer to Hematology with 3 sets of labs for further evaluation Link R79.89 Abnormal CBC 08/09/2023 Bilateral impacted cerumen (ICD-10 - H61.23) Curette used to clear cerumen from bilateral ears Flushed without incident Continue using debrox as needed for impaction 08/09/2023 Abnormal CBC (ICD-10 - R79.89) Will repeat CBC 11/28/2023 Atherosclerotic heart disease of [place] coronary artery without angina pectoris (ICD-10 - I25.10) 11/28/2023 Coronary atherosclerosis due to lipid rich plaque (ICD-10 - I25.83) 08/01/2023 Abnormal CBC (ICD-10 - R79.89) 08/01/2023 Essential (primary) hypertension (ICD-10 - I10) Continue medication as directed Low-salt diet Weight management Regular exercise Yearly microalbumin 11/28/2023 Pancolitis (ICD-10 - K51.00) 08/01/2023 Bilateral impacted cerumen (ICD-10 - H61.23) Flush attempted in office Unable to totally expel cerumen Recommended use of Debrox and returning to office for flush to be able to assess TM 08/01/2023 Encounter to discuss test results (ICD-10 - Z71.2) All labs were reviewed and the results were explained to the patient in detail. Total time with patient >30 minutes which includes education and coordination of care. 08/01/2023 Slade Dameon states that he has had bilateral ear injections for 3 years and has never been treated and that is why his WBC is elevated. Unable to assess TM today in office, afrebrile. Concern for another hematological process. PLAN OF TREATMENT Future Test Test Name Order Date 1,25OH VITAMIN D 08/01/2023 APOLIPOPROTEIN A1 08/01/2023 APOLIPOPROTEIN B 08/01/2023 CBC (COMPLETE BLOOD COUNT) WITH DIFF COMPREHENSIVE METABOLIC PANEL 08/01/2023 CRP, HIGH SENSITIVITY 08/01/2023 FERRITIN 08/01/2023 HEMOGLOBIN A1C 08/01/2023 HOMOCYSTEINE, PLASMA 08/01/2023 INSULIN 08/01/2023 IRON AND TIBC 08/01/2023 MICROALBUMIN, URINE 08/01/2023 RETICULOCYTE COUNT 08/01/2023 LIPID PANEL 08/01/2023 CBC (COMPLETE BLOOD COUNT) WITH DIFF 01/2024 Insurance Providers Payer Name Payer Address Payer Phone Subscriber Number Group Number Insured Name Patient Relationship to Insured Coverage Start Date Coverage End Date [facility] [address] [address] [place] [address] [id number] DAMEON SINCLAIR Self - patient is the insured MEDICAL (GENERAL) HISTORY Medical History History ICD Code Diabetes Coronary Artery Disease Stent placed Angiogram Surgical History Surgery Date(Month/Year) Spinal Fusion 1989 Colonoscopy 11/2022 Coronary Stent 08/2020 Vasectomy 1994
[2024-06-18 11:54] VITALS: BP 128/83; PULSE 71; BMI 22.2
== END 2024-06-18 12:38 | disposition home or self-care (01) ==
PROVIDERS: PCP Internal Medicine; Visit Provider Nurse Practitioner
DX: K50.90 Crohn's disease, unspecified, without complications (principal)
CPT/HCPCS: 99213

== ENCOUNTER → 2024-06-18 11:46 | Outpatient (BNVA) | payer MEDICARE, SELFPAY | PROVIDERS: PCP Internal Medicine; Visit Provider Nurse Practitioner | DX: K50.90 Crohn's disease, unspecified, without complications (principal) | CPT/HCPCS: 99212 ==

== ENCOUNTER 2024-07-09 12:58 | Outpatient (AMB) | payer MEDICARE, SELFPAY ==
--- OUTSIDE RECORDS SUMMARY | 2024-07-09 13:00 | XMS_ITS ---
Author Organization [facility] Address [address] [place], [place] [id number] Care Team Providers Care Humanities Instructor Name Role Phone CONNOR FORD Primary Care Provider [phone] Rachael Benjamin [phone] REASON FOR REFERRAL Reason Please refer to [facility] for pancolitis. Recent ED visit with CT results. Thank you Diagnosis 1 Pancolitis (K51.00) [facility] Referring Provider First Name Rachael Referring Provider Last Name Sourav Referring Provider Speciality Nurse Prac titioner Ref[facility] Referred Address [address] [place], [id number], Referred Provider Specialty Gastroentero logy General Notes CHANCE LU 10/31 03:43:54 PM >BMP Form, Referral for consultation, OV Note, CT Scan and ER Notes faxed to [facility] [phone] AMY 12/05/2023 10:20:19 AM >Referral, CT Scan, ER Notes all faxed to [facility] as patients insurance was not taken at [facility]. [phone]. Referral Priority Routine REASON FOR VISIT GI Referral MEDICATIONS Medication SIG (Take, Route, Frequency, Duration) Notes Start Date End Date Status Metoprolol Tartrate 25 MG 1 tablet with food Orally Twice a day for 90 days Active Lipitor 80 MG 1 tablet Orally Once a day for 90 days Active Encounters Encounter Location Date Provider [facility] [address] [id number] 11/28/2023 Rachael Benjamin Atherosclerotic hear t disease of [place] coronary artery without angina pectoris I25.10 ; Coronary atherosclerosis due to lipid rich plaque I25.83 and Pancolitis K51.00 ASSESSMENTS Encounter Date Diagnosis Assessment Notes Treatment Notes Treatment Clinical Notes Section Notes 11/28/2023 Atherosclerotic heart disease of [place] coronary artery without angina pectoris (ICD-10 - [...] visit with CT results. Thank you , [address] [place], [place] [address] [place], [phone], @[email or web address], Progress Notes * DAMEON SINCLAIRDOB:1960 (63 yo M)Acc No.[id number]:11/28/2023 Patient:??WADE SINCLAIRLEY :1960?Age:63 Y?Sex:Shane guevara Phone: Address:[address] [place] [address] * Refills?? Refill Metoprolol Tartrate Tablet, 25 [...] * Assessment: 1.??Atherosclerotic heart di sease of [place] coronary artery without angina pectoris - I25.10??2.??Coronary atherosclerosis due to lipid rich plaque - I25.83??3.??Pancolitis - K51.00?? Plan: * Treatment: 2.??Coronary atherosclerosis due to lipid rich plaque?? Refill Lipitor Tablet, 80 MG, 1 tablet, Orally, Once a day, 90 days, 90 Tablet, Refills 1.? 3.??Pancolitis? Referral To:Gastroenterology ?Reason:Please refer to [facility] for pancolitis. Recent ED visit with CT results. Thank you * Procedure Codes:?? * true * Date:?? Consultation Request Notes Referral Date Referring Provider Referred Provider Not es 11/28/2023 Rachael Benjamin , Please refer to [facility] for pancolitis. Recent ED visit with CT results. Thank you
[2024-07-09 13:01] VITALS: BP 122/78; PULSE 75; BMI 22.5
--- NOTE | 2024-07-09 13:01 | A.OFFVIS_ITS ---
Vital Signs 07/09/24 13:01 Height 5 ft 10 in Weight 156 lb 8.451 oz BMI 22.5 BP 122/78 Blood Pressure Location Rt brachial Position Sitting Pulse 75 Pulse Source Pulse Oximeter Intake Visit Reasons: DM Intake Note: Patient presents today for a follow-up on Type 2 Diabetes Mellitus: Patient reporting episodes of hypoglycemia. Last Diabetic eye exam was on: 4 months ago, no diabetic retinopathy Last Podiatry exam was on: Does not see a Manager Heavy Duty Most recent HbA1c: 8.1%, 07/09/2024 Random Glucose- 135 mg/dL, Today Plan Consultant Required: No Accompanied by: Self / Same As Patient Allergies No Known Drug Allergies Allergy (Unknown, Verified 04/03/24 15:07) Unknown HPI Comments Details: The patient is a 63 year old male with uncontrolled type 2 diabetes presenting for consultation Medical history: bipolar disorder, IBD-Crohns, CAD s/p PCI Diagnosed with diabetes since 1994. Current medication: Glipizide 10mg twice daily, metformin 1000mg twice daily, Actos 30mg daily POC A1C today is 8.1% from 12.1%-04/03/2024 Since being off prednisone his glucose has become increasingly variable. He is testing 6 times daily and logging them 3 times daily. He is having frequent hypoglycemia. CGM:Last 7 days 111-138, 30 days 121-150. 99% in range. 1% 181-250. IBD-He was hospitalized at the beginning of November with colitis, then diagnosed with Crohns. His medications are being adjust. Off steroids, was not good on humira. Doing really well on rinvoq-the dose was lowered. He was having a lot of flatulence, still is but improved Micro/macrovascular complications: CAD Denies hypoglycemia Denies polyuria, polydipsia ROS CONSTITUTIONAL: Denies weight loss, fever and chills. HEENT: Denies changes in vision and hearing. RESPIRATORY: Denies SOB and cough. CV: Denies palpitations and CP GI: Denies abdominal pain, nausea, vomiting and diarrhea. : Denies dysuria and urinary frequency. MSK: Denies new myalgia and joint pain. SKIN: Denies rash and pruritus. NEUROLOGICAL: Denies headache PSYCHIATRIC: Denies recent changes in mood. PHYSICAL EXAM: GENERAL: Alert and oriented x 3. NAD EYES: EOMI. Anicteric. HENT: Moist mucous membranes. No scleral icterus. LUNGS: Clear to auscultation bilaterally. CARDIOVASCULAR: Regular rate and rhythm. ABDOMEN: Soft, non-tender +bs EXTREMITIES: No edema. Non-tender. SKIN: No rashes or lesions. Warm. NEUROLOGIC: No focal neurological deficits. CN II-XII grossly intact PSYCHIATRIC: Cooperative. Appropriate mood and affect [facility] Medical History Colitis IBD (inflammatory bowel disease) Pre-op examination Elevated cholesterol HTN (hypertension) Diabetes Myocardial infarction CAD (coronary artery disease) Surgical History H/O colonoscopy H/O heart artery stent H/O spinal fusion Family History Mother Colon cancer Father No problems noted. Social History Housing: House Alcohol intake: former Year quit: 2017 Patient Tobacco Use Status: Never used Tobacco e-Cigarette/Vaping Use: Never Used service: No Current occupational status: disabled and other Current occupation: Former [employer] Cognitive needs: No Hearing needs: No Vision needs: Yes Physical Exam Vital Signs: Last Vital Signs Pulse 75 07/09/24 13:01 BP 122/78 07/09/24 13:01 BMI result Body Mass Index 22.5 Results AMB Hemoglobin A1c AMB Hemoglobin A1c 8.1 % Last Edit by KATHIE Loza on 07/09/24 13:16 Assessment & Plan Assessment & Plan (1) DMII (diabetes mellitus, type 2): Code(s): E11.9 - Type 2 diabetes mellitus without complications Category: Medical Qualifiers: Diabetes mellitus keno terminal operator insulin use: without keno terminal operator use Diabetes mellitus complication status: with circulatory complication Diabetes mellitus complication detail: with other circulatory complications Qualified Code(s): E11.59 - Type 2 diabetes mellitus with other circulatory complications Plan: congratulated on much improved A1C. CGM reviewed. Still gets lows in 70s evening. Will keep current doses of medications Return in 3 months for A1C/follow up, or sooner as needed Orders: Orders AMB Hemoglobin A1c Today E11.59 - Type 2 diabetes mellitus with other circulatory complications Medications: Changed From glipizide ER 5 mg PO DAILY 90 tabs 3RF To glipizide ER 10 mg (2 x 5 mg) PO BID 360 tabs 3RF Coding Level of Care Code Est Pt Level 4 (77046) Diagnoses Type 2 diabetes mellitus with other circulatory complication, without long-term current use of insulin E11.59 Diabetes mellitus keno terminal operator insulin use: without keno terminal operator use Diabetes mellitus complication status: with circulatory complication Diabetes mellitus complication detail: with other circulatory complications
--- OUTSIDE RECORDS SUMMARY | 2024-07-09 13:01 | XMS_ITS | Patient Health Record ---
Author Organization [facility] Address [address], [place] [id number] Care Team Providers Care Middle School Sports Coach Name Role Phone LILIANA CONNOR Primary Care Provider Rachael Benjamin Unavailable [phone] ALLERGIES No Known Allergies REASON FOR REFERRAL Reason Hematology for evalu ation of abnormal CBC. Consistent elevated WBC, anemia, and abnormal diff Please refer to Dr. Kuhn please attach all 3 CBC results with referral Diagnosis 1 Abnormal CBC (R79.89 ) Diagnosis 2 Other iron deficienc y anemia (D50.8) [facility] Referring Provider First Name Rachael Referring Provider Last Name Sourav Referring Provider Speciality Nurse Evelyn kaufman [facility] Referred Address [address], [id number], Referred Provider Specialty Hematology General Notes PATTI BROOKS 0 08/03/2023 12:16:28 PM >appt request, demographics, referral, office note and labs faxed to [facility] with request to see Dr. Kuhn [phone] Referral Priority Routine Reason Please refer to [facility] for pancolitis. Recent ED visit with CT results. Thank you Diagnosis 1 Pancolitis (K51.00) [facility] Referring Provider First Name Rachael Referring Provider Last Name Sourav Referring Provider Speciality Nurse Evelyn kaufman [facility] Referred Address [address], [id number], Referred Provider Specialty Gastroentero logy General Notes CHANCE LU 10/31 03:43:54 PM >BMP Form, Referral for consultation, OV Note, CT Scan and ER Notes faxed to [facility] [phone], CHANCE LU 12/05/2023 10:20:19 AM >Referral, CT Scan, ER Notes all faxed to [facility] as patients insurance was not taken at [facility]. [phone]. Referral Priority Routine MEDICATIONS Medication SIG (Take, [...] with Women only Section Notes: Lives in [facility] with his dog. Patient is on disability. Lives in [place] with his dog. Patient is on disability. Lives in [place] with his dog. Patient is on disability. Lives in [place] with his dog. Patient is on disability. Lives in [place] with his dog. Patient is on disability. Lives in [place] with his dog. Patient is on disability. Lives in [place] with his dog. Patient is on disability. Lives in [place] with his dog. Patient is on disability. PROBLEMS Problem Type ICD Code Onset Dates Problem Status W/U Status Risk SNOMED Code Notes Problem Essential (primary) hypertension (I10) Active confirmed 14805979 Problem Atherosclerotic heart disease of [place] coronary artery without angina pectoris (I25.10) Active confirmed 499592313 Problem Coronary atherosclerosis due to lipid rich plaque (I25.83) Active confirmed 828470895199473 Problem Type 2 diabetes mellitus with hyperglycemia, without long-term current use of insulin (E11.65) Active confirmed 74376772 Problem Other iron deficiency anemia (D50.8) Active confirmed 40570430 Problem Abnormal CBC (R79.89) Active confirmed 835507672 VITAL SIGNS Heart Rate 78 /min 11/08/2023 Height-cm 177.8 cm 11/08/2023 Oximetry 96 % 11/08/2023 Blood pressure diastolic 62 mm Hg 11/08/2023 Weight-kg 70.4 kg 11/08/2023 Height 70 in 11/08/2023 Blood pressure systolic 124 mm Hg 11/08/2023 Weight 155.2 lbs 11/08/2023 BMI 22.27 kg/m2 11/08/2023 Encounters Encounter Location Date Provider Diagnosis [address] [id number] 07/17/[address] [id number] 11/06/[address] [id number] 08/01/2023 Rachael Benjamin Type 2 diabetes mellitus with hyperglycemia, without long-term current use of insulin E11.65 ; Other iron deficiency anemia D50.8 ; Abnormal CBC R79.89 ; Essential (primary) hypertension I10 ; Bilateral impacted cerumen H61.23 and Encounter to discuss test results Z71.[address] [id number] 08/09/2023 Rachael Benjamin Bilateral impacted cerumen H61.23 and Abnormal CBC R79.[address] [id number] 11/08/[address] [id number] 08/06/[address] [id number] 10/02/[address] [id number] 11/28/2023 Rachael Benjamin Atherosclerotic hear t disease of [place] coronary artery without angina pectoris I25.10 ; [...] repeat CBC 11/28/2023 Atherosclerotic heart disease of [place] coronary artery without angina pectoris (ICD-10 - [...] education and coordination of care. 08/01/2023 Slade Munoz states that he has had bilateral ear [...] Insured Coverage Start Date Coverage End Date [facility] [address] [address] [place] [address] [id number] DAMEON SINCLAIR Self - patient is the insured MEDICAL (GENERAL) HISTORY Medical History History ICD Code Diabetes Coronary Artery Disease Stent placed Angiogram Surgical History Surgery Date(Month/Year) Spinal Fusion 1989 Colonoscopy 11/2022 Coronary Stent 08/2020 Vasectomy 1994
--- OUTSIDE RECORDS SUMMARY | 2024-07-09 13:01 | XMS_ITS ---
Author Organization [employer] [facility] Address [address] [place] [id number] Care Team Providers Care Para Educator Name Role Phone CONNOR FORD Primary Care Provider [phone] Sourav Rachael Unavailable [phone] ALLERGIES No Known Allergies REASON FOR VISIT [...] with Women only Section Notes: [place] [facility] [place]. Patient is on disability. VITAL SIGNS Blood pressure systolic 124 mm Hg 11/08/19 24 Blood pressure diastolic 62 mm Hg 024 Heart Rate 78 /min 11/08/2023 Height 70 in 11/08/2023 Weight 155.2 lbs 11/08/2023 BMI 22.27 kg/m2 11/08/2023 Oximetry 96 % 11/08/2023 Height-cm 177.8 cm 11/08/2023 Weight-kg 70.4 kg 11/08/2023 Encounters Encounter Location Date Provider Diagnosis [address] [place] [id number] 11/08/2023 Rachael Benjamin PLAN OF TREATMENT No Information Progress Notes * DAMEON SINCLAIRDOB:1960 (63 yo M)Acc No.[id number]:11/08/2023 Progress Notes Patient:??DAMEON SINCLAIR Provider:??Rachael Benjamin DNP :1960?Age:63 Y?Sex:Agustin le Date:11/08/2023 Phone: Address: [address] [facility] Pcp:CONNOR FORD Subjective: * Chief Complaints: * ?f/u labs & GI bleed * HPI: ?Patient Care Team:?Glass Sander:??[facility]. Supervisor Irrigation: Dr. Saroj Boston Garrett..?Visit info:? Dameon presents in the office today for a lab review. Patient is very upset and confused about being referred to [facility] for 3 weeks of testing. ?He states [...] continued to tell the provider that the police records clerk told him that his pcp didn't know [...] lifting, bicycle, [employer]. 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 ?Lives in [place], [place] alone with his dog. Patient is [...] Notes Category Not es Patient Care Team Glass Sander: Dolores mantilla. Supervisor Irrigation: Dr. Saroj Robles. Visit info Dameon presents [...] continued to tell the provider that the police records clerk told him that his pcp didn't know what she was doing and advised him to seek alternate care. He would not allow provider to speak and continued to repeat himself. At this time, he was politely asked to leave the office- which he did.
--- OUTSIDE RECORDS SUMMARY | 2024-07-09 13:01 | XMS_ITS ---
[facility] Organization [facility] Address [address] [place] [id number] Care Team Providers Care Certified Medication Aide Name Role Phone CONNOR FORD Primary Care Provider [phone] Alanna Rachael Benjamin [phone] ALLERGIES No Known Allergies REASON FOR VISIT [...] with Women only Section Notes: Lives in [facility] with his dog. Patient is on disability. Encounters Encounter Location Date [facility] [address] [id number] 11/06/2023 Rachael Benjamin PLAN OF TREATMENT No Information Progress Notes * DAMEON SINCLAIRDOB:1960 (63 yo M)Acc No.[id number]:11/06/2023 Progress Notes Patient:??DAMEON SINCLAIR Provider:??Rachael Benjamin DNP :1960?Age:63 Y?Sex:Shane guevara Date:11/06/2023 Phone: Address:[address] [place], [place] Pcp:CONNOR FORD Subjective: * Chief Complaints: * ?1. F/u labs. * HPI: ?Patient Care Team:?Dredge Runner:??[facility]. Real Estate Broker: Dr. Saroj Boston Berwick..?? 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 ?Lives in [place], [place] alone with his dog. Patient is [...] Notes Category Not es Patient Care Team Dredge Runner: [facility] Chaim mantilla. Real Estate Broker: Dr. Saroj Robles.
[2024-07-09 13:09] LABS: Glucose, Whole Blood 135 mg/dL (60-115)
== END 2024-07-09 13:22 | disposition home or self-care (01) ==
PROVIDERS: PCP Internal Medicine; Visit Provider Internal Medicine
DX: E11.59 Type 2 diabetes mellitus with other circulatory complications (principal)

== ENCOUNTER → 2024-07-09 12:58 | Outpatient (BNVA) | payer MEDICARE, SELFPAY | PROVIDERS: PCP Internal Medicine; Visit Provider Internal Medicine | DX: E11.59 Type 2 diabetes mellitus with other circulatory complications (principal); Z79.84 Long term (current) use of oral hypoglycemic drugs | CPT/HCPCS: 82947; 83036; 99212 ==

== ENCOUNTER 2024-10-08 13:02 | Outpatient (AMB) | payer MEDICARE, SELFPAY ==
--- NOTE | 2024-10-08 13:09 | A.OFFPC_ITS ---
Vital Signs 10/08/24 13:12 Height 5 ft 10 in Weight 154 lb 5.177 oz BMI 22.1 BP 128/72 Blood Pressure Location Rt brachial Position Sitting Pulse 61 Pulse Source Pulse Oximeter Pulse Oximetry (%) 96 Oxygen Delivery Method Room Air Intake Visit Reasons: DM Intake Note: Patient presents today for a follow-up on Type 2 Diabetes Mellitus: Last Diabetic eye exam was on: 03/2024, No diabetic retinopathy Last Podiatry exam was on: Does not see a Mica Plate Layer Hand Most recent HbA1c: 5.9%, 10/08/2024 Random Glucose- 122 mg/dL, Today Guitar Repair Technician Required: No Accompanied by: Self / Same As Patient Allergies No Known Drug Allergies Allergy (Unknown, Verified 10/08/24 13:14) Unknown Medication List - Last Reconciled 10/08/24 by Mimi Durán MD aspirin 81 mg PO DAILY 90 days atorvastatin 80 mg PO BEDTIME 90 days Dexcom G6 Electric Meter Tester Shop (blood-glucose,poultry dresser,cont) As directed NS Dexcom G6 Sensor (blood-glucose sensor) every 10 days NS Dexcom G6 Transmitter (blood-glucose transmitter) As directed NS FreeStyle Lancets (lancets) once daily NS glipizide ER 10 mg PO DAILY lancets test once daily mesalamine (Lialda) 2.4 grams (2 x 1.2 gram) PO BID 30 days metformin 1,000 mg PO BID 90 days metoprolol tartrate 25 mg PO DAILY OneTouch Ultra Test (blood sugar diagnostic) once daily NS OneTouch Ultra2 Meter (blood-glucose meter) As directed NS pioglitazone 30 mg PO DAILY trazodone 100 mg PO BEDTIME PRN upadacitinib ER (Rinvoq) 45 mg PO DAILY 12 weeks upadacitinib ER (Rinvoq) 30 mg PO DAILY zolpidem 10 mg PO BEDTIME PRN Tobacco use date assessed: 08/24/21 HPI HPI Comments History of Present Illness Details The patient is a 63 year old male with uncontrolled type 2 diabetes presenting for follow up Medical history: bipolar disorder, IBD-Crohns, CAD s/p PCI Diagnosed with diabetes since 1994. Current medication: Glipizide 10mg twice daily, metformin 1000mg twice daily, Actos 30mg daily CGM:Last 7 days 6.5%. TGT 84%, 16% high. POC A1C 5.9%. 12.1%-04/03/2024. Five low events in 90 days IBD-He was hospitalized at the beginning of November with colitis, then diagnosed with Crohns. Off steroids, was not good on humira. Doing really well on rinvoq- the dose was lowered. He was having a lot of flatulence, still is but improved Micro/macrovascular complications: CAD Denies hypoglycemia Denies polyuria, polydipsia ROS CONSTITUTIONAL: Denies weight loss, fever and chills. HEENT: Denies changes in vision and hearing. RESPIRATORY: Denies SOB and cough. CV: Denies palpitations and CP GI: Denies abdominal pain, nausea, vomiting and diarrhea. : Denies dysuria and urinary frequency. MSK: Denies new myalgia and joint pain. SKIN: Denies rash and pruritus. NEUROLOGICAL: Denies headache PSYCHIATRIC: Denies recent changes in mood. PHYSICAL EXAM: GENERAL: Alert and oriented x 3. NAD EYES: EOMI. Anicteric. HENT: Moist mucous membranes. No scleral icterus. LUNGS: Clear to auscultation bilaterally. CARDIOVASCULAR: Regular rate and rhythm. ABDOMEN: Soft, non-tender +bs EXTREMITIES: No edema. Non-tender. SKIN: No rashes or lesions. Warm. NEUROLOGIC: No focal neurological deficits. CN II-XII grossly intact PSYCHIATRIC: Cooperative. Appropriate mood and affect [facility] Medical History Colitis IBD (inflammatory bowel disease) Pre-op examination Elevated cholesterol HTN (hypertension) Diabetes Myocardial infarction CAD (coronary artery disease) Surgical History H/O colonoscopy H/O heart artery stent H/O spinal fusion Family History Mother Colon cancer Father No problems noted. 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 Joe Dawkins, Lauren Joshi, Lavelle Murray and colleagues, with an educational william from [employer]. Physical exam (Primary Care) Vital Signs: Last Vital Signs Pulse 61 10/08/24 13:12 BP 128/72 10/08/24 13:12 Pulse Ox 96 10/08/24 13:12 Oxygen Delivery Method Room Air 10/08/24 13:12 BMI result Body Mass Index 22.1 Tobacco/Smoking Status: Tobacco use Status Tobacco use date assessed 08/24/21 10/08/24 13:09 Patient Tobacco Use Status Never used Tobacco 10/08/24 13:09 Tobacco use type 03/18/24 16:47 e-Cigarette/Vaping Use Never Used 10/08/24 13:09 Thrive Assessment: Date of Thrive Assessment Date Thrive assessed 08/24/21 10/08/24 13:09 Results AMB Hemoglobin A1c AMB Hemoglobin A1c 5.9 % Last Edit by KATHIE Loza on 10/08/24 13:25 Results Reviewed Results Reviewed: Laboratory Last Values Glucose (Clinic) 122 mg/dL (60-115) H 10/08/24 13:18 Hgb A1c (Clinic) 5.9 % (4.0-6.0) 10/08/24 13:23 Coding Level of Care Code Est Pt Level 4 (08589) Complex EM visit Add On G2211 Diagnoses Type 2 diabetes mellitus with other circulatory complication, without long-term current use of insulin E11.59 Diabetes mellitus complication detail: with other circulatory complications Diabetes mellitus complication status: with circulatory complication Diabetes mellitus long chain beamer insulin use: without long chain beamer use Hypoglycemia E16.2 Assessment & Plan Assessment & Plan (1) DMII (diabetes mellitus, type 2): Code(s): E11.9 - Type 2 diabetes mellitus without complications Category: Medical Qualifiers: Diabetes mellitus complication detail: with other circulatory complications Diabetes mellitus complication status: with circulatory complication Diabetes mellitus prison insulin use: without prison use Qualified Code(s): E11.59 - Type 2 diabetes mellitus with other circulatory complications Plan: Controlled on current medications. Some lows -decrease glipizide to 10mg daily. Continue metformin, actos Needs continued CGM for frequent hypoglycemia Follow up in 3 months (2) Hypoglycemia: Code(s): E16.2 - Hypoglycemia, unspecified Category: Medical Plan: Continue CGM Treat hypolglycemia with rules of 15s Orders: Orders Hemoglobin A1c 3 Months E11.59 - Type 2 diabetes mellitus with other circulatory complications Comprehensive Met. Panel 3 Months E11.59 - Type 2 diabetes mellitus with other circulatory complications Microalbumin, Random (w Creat) 3 Months E11.59 - Type 2 diabetes mellitus with other circulatory complications AMB Hemoglobin A1c Today E11.59 - Type 2 diabetes mellitus with other circulatory complications Lipid Panel 3 Months E11.59 - Type 2 diabetes mellitus with other circulatory complications Medications: New glipizide ER 10 mg PO DAILY 90 tabs 3RF
[2024-10-08 13:12] VITALS: BP 128/72; PULSE 61; O2SAT 96; BMI 22.1
[2024-10-08 13:22] LABS: Glucose, Whole Blood 122 mg/dL (60-115)
--- OUTSIDE RECORDS SUMMARY | 2024-10-08 15:09 | XMS_ITS | Clinical Summary ---
Author Organization [employer] [facility] Address [address] [place] [address] Care Team Providers Care Immunology Teacher Name Role Phone Rachael Benjamin APRN Primary Care Provider [phone] Allergies No known active allergies Medications Medication Sig Dispensed Refills Start Date End Date Status aspirin 81 MG EC tablet Take 1 tablet (81 mg total) by mouth. 0 09/01/2022 Active atorvastatin (LIPITOR) tablet 80 mg 0 09/22/2023 Active glipiZIDE (GLUCOTROL XL) ER 24 hr tablet 10 mg 0 08/21/2023 Active metFORMIN (GLUCOPHAGE) tablet 1000 mg 0 07/18/2023 Active metoprolol tartrate (LOPRESSOR) 25 MG tablet 0 09/22/2023 Active Social History Tobacco Use Types Packs/Day Years Used Date Smoking Tobacco: Former Cigarettes 1 Q uit: 1993 Tobacco Cessation:Counseling Given: Not Answered Sex and Gender Information Value Date Recorded Sex Assigned at Not on file Gender Identity Not on file Sexual Orientation Not on file Job Start Date Occupation Industry Not on file Not on file Not on file Last Filed Vital Signs Vital Sign Reading Time Taken Comments Blood Pressure 151/64 10/19/2023 9:41 AM EDT Pulse 85 10/19/2023 9:41 AM EDT Temperature 36.3 ??C (97.3 ??F) 10/19/2023 9:41 AM ED T Respiratory Rate 18 10/19/2023 9:41 AM EDT Oxygen Saturation 99% 10/19/2023 9:41 AM EDT Inhaled Oxygen Concentration - - Weight 71 kg (156 lb 9.6 oz) 10/19/2023 9:41 AM EDT Height 181 cm (5' 11.25 ) 10/05/2023 11:08 AM ED T Body Mass Index 21.69 10/05/2023 11:08 AM EDT Plan of Treatment Health Maintenance Due Date Last Done Comments Depression Screening 1971 Preventative Health Evaluation 11/02/1977 Colon Cancer Screening (Colonoscopy) 11/02/2004 Shingrix-Zoster Vaccine (1 of 2) 11/02/2009 COVID-19 Vaccine (3 - season) 2024 11/12/2020, 10/22/2020 Influenza Vaccine (#1) 2024 , 08/25/2019, 04/08/2018, Additional history exists Pneumococcal Vaccine (2 of 2 - PCV) 11/02/2024 06/15/2016, 04/08/2004 DTap / Tdap / Td (2 - Td or Tdap) 06/15/2026 06/15/2016 RSV Adult > 60+ Yrs or (1 - 1-dose 75+ series) 11/02/2034 Pneumococcal Vaccine Aged Out 06/15/2016, 04/08/20 04 No longer eligible based on patient's age to complete this topic Hepatitis C Screening Completed 10/05/2023 Hepatitis B Vaccines Aged Out No long er eligible based on patient's age to complete this topic RSV Ped < 20 months Aged Out No longe r eligible based on patient's age to complete this topic Care Teams Immunology Teacher Relationship Specialty Start Date End Date Rachael Benjamin APRN [address] [place] [address], [place] [phone] PCP - General Nurse Practitioner 10/06/23
--- OUTSIDE RECORDS SUMMARY | 2024-10-08 15:09 | XMS_ITS ---
[facility] Address [address] [place] [id number] Care Team Providers Care Dukey Rider Name Role Phone CONNOR FORD Primary Care Provider [phone] Alanna Rachael Benjamin [phone] ALLERGIES No Known Allergies REASON FOR VISIT [...] with Women only Section Notes: Lives in [facility] with his dog. Patient is on disability. Encounters [facility] Date [facility] [address] [phone] [facility]/06/2023 Rachael Benjamin PLAN OF TREATMENT No Information Progress Notes * DAMEON SINCLAIRDOB:1960 (63 yo M)Acc No.[id number]:11/06/2023 Progress Notes Patient:??DAMEON SINCLAIR Provider:??Rachael Benjamin DNP :1960?Age:63 Y?Sex:Shane guevara Date:11/06/2023 Phone: Address:[address] [place], [place] Pcp:CONNOR FORD Subjective: * Chief Complaints: * ?1. F/u labs. * HPI: ?Patient Care Team:?Group Contract Analyst:??[facility]. Pathology Laboratory Aide: Dr. Saroj [place]..?? 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 ?Lives in [place], [place] alone with his dog. Patient is [...] Notes Category Not es Patient Care Team Group Contract Analyst: Dolores mantilla. Pathology Laboratory Aide: Dr. Saroj Robles.
--- OUTSIDE RECORDS SUMMARY | 2024-10-08 15:09 | XMS_ITS | Clinical Summary ---
Author Organization [facility] Address [address] [place] [address] Care Team Providers Care Fashion Consultant Sales Name Role Phone Community, Pcp Primary Care Provider Unavailabl e Allergies Active Allergy Reactions Severity Noted Date Comments Oxycodone 08/12/2015 GI side effect Medications Medication Sig Dispensed Refills Start Date End Date Status aspirin 81 MG EC tablet Take 1 Tablet by mouth daily for 180 days. 90 Tablet 1 09/01/2022 Active glipiZIDE (GLUCOTROL) 10 MG 24 hr tablet Take 1 Tablet by mouth 2 times daily for 90 days. 180 Tablet 2 09/05/2022 Active metformin (GLUCOPHAGE) 1000 MG tablet TAKE 1 TABLET BY MOUTH TWICE DAILY WITH MEALS 180 Tablet 3 11/02/2022 Active metoprolol (LOPRESSOR) 25 MG tablet TAKE 1 TABLET BY MOUTH TWICE DAILY 180 Tablet 0 01/03/2023 Active atorvastatin (LIPITOR) 80 MG tablet TAKE 1 TABLET BY MOUTH AT BEDTIME 90 Tablet 0 01/03/2023 Active Active Problems Problem Noted Date Uncontrolled type 2 diabetes mellitus wi th hyperglycemia 09/04/2022 History of non-ST elevation myocardial i nfarction (NSTEMI) 09/25/2020 Overview: 09/19: GREG to proximal large first diagonal; [facility] Diabetes mellitus with background retino hilda 08/12/2015 Erectile dysfunction 08/12/2015 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 08/12/2015 Insomnia 08/12/2015 Diabetes mellitus with neuropathy 2015 Hyperlipidemia 07/22/2015 Resolved Problems Problem Noted Date Resolved Date Type 2 diabetes mellitus wit h neurological manifestations, uncontrolled 08/12/2015 09/08/2015 Type 2 diabetes mellitus wit h ophthalmic manifestations, uncontrolled 07/22/2015 09/08/2015 Immunizations Name Administration Dates Next Due COVID-19 (Pfizer) 11/12/2020,10/22/2020 Influenza (> 6 Months) 03/21/2016 Influenza Vaccine-preservati ve Free-quadrivalent 4 Years 04/15/2021,08/25/2019 Influenza Vaccine-quadrivalent 4 Years Plus 01/2018 Pneumoccoccal(Adult) Polysaccharide PPSV23 06/15 Tdap 06/15/2016 Family History Medical History Relation Name Comments CA of Pancreas Brother 1 Diabetes Brother 2 Alcohol Abuse Brother 3 CAD Father smoker/ alcohol ism /MO CA Colon Mother Hypertension Negative Hx Relation Name Status Comments Brother 1 Brother 2 Brother 3 Father Mother Social History Tobacco Use Types Packs/Day Years Used Date Smoking Tobacco: Former Cigarettes 0.5 3 0 07/22/1982 - 07/22/1985 Smokeless Tobacco: Former Tobacco Cessation:Counseling Given: Not Answered Alcohol Use Standard Drinks/Week Comments No 0 (1 standard drink = 0.6 oz pur e alcohol) Sex Assigned at Date Recorded Not on file Job Start Date Occupation Industry Not on file Not on file Not on file Last Filed Vital Signs Vital Sign Reading Time Taken Comments Blood Pressure 136/84 12/29/2022 10:28 AM EDT Auto Cuff Pulse 83 12/29/2022 10:28 AM EDT Temperature 36.6 ??C (97.8 ??F) 12/29/2022 1 0:28 AM EDT Respiratory Rate 16 09/01/2022 3:02 PM EST Oxygen Saturation 98% 12/29/2022 10: 28 AM EDT Inhaled Oxygen Concentration - - Weight 70.7 kg (155 lb 12.8 oz) 023 10:28 AM EDT Height 177.8 cm (5' 10 ) 12/29/2022 10: 28 AM EDT Body Mass Index 22.35 12/29/2022 10:28 AM EDT Plan of Treatment Health Maintenance Due Date Last Done Comments SHINGLES VACCINE (1 of 2) 11/02/2009 DIABETES: ANNUAL FOOT EXAM 04/08/2019 04/08/2018, DEPRESSION SCREEN 04/07/2020 04/07/2019, 01/03/2018 DIABETES: ANNUAL EYE EXAM 07/02/20212020 (External Completion of test per patient (Patient reports normal results)), 07/02/2014 (External Completion of test per patient (Patient reports normal results)) DIABETES/HEART DISEASE: KIT AL CHOLESTEROL (LDL) 12/16/2021 12/16/2020, 08/17/2020, 04/03/2019, Additional history exists DIABETES: ANNUAL URINE PROTE IN TEST (MICROALBUMIN) 04/12/2022 04/12/2021, 12/16/2020, 04/03/2019, Additional history exists DIABETES: BLOOD SUGAR CONTRO L TEST (HGBA1C) 12/02/2022 09/01/2022, 08/15/2021, 04/12/2021, Additional history exists Covid-19 Vaccine (3 - 2022-2 4 season) 2024 11/12/2020, 10/22/2020 COLON CANCER SCREENING 06/02/2024 9 (Completed), 06/02/2019, 08/17/2015, Additional history exists PNEUMOCOCCAL VACCINE FOR HIG H RISK PATIENTS (#2) 11/02/2024 06/15/2016 INFLUENZA (Season Ended) 2025 021, 08/25/2019, 04/08/2018, Additional history exists DTAP/TDAP/TD (3 - Td or Tdap) 06/15/2026 06/15/2016, 03/23/2010 HEPATITIS C SCREENING Completed 12/04/2018 Care Teams Fashion Consultant Sales Relationship Specialty Start Date End Date Community, Pcp PCP - General Internal Medicine 01/03/23
--- OUTSIDE RECORDS SUMMARY | 2024-10-08 15:09 | XMS_ITS | Encounter Summary ---
Author Organization [facility] Address [address] [place] [id number] Care Team Providers Care Biomaterials Engineer Name Role Phone Community, Pcp Primary Care Provider Unavailabl e Reason for Visit * Reason Onset Date Comments medication problems 01/03/2023 Encounter Details Date Type Department Care Team Description 01/03/2023 Refill Adult Medicine - [address] [address] Carol Begum MD medication problems Social History Tobacco Use Types Packs/Day Years Used Date Smoking Tobacco: Former Cigarettes 0.5 3 0 07/22/1982 - 07/22/1985 Smokeless Tobacco: Former Alcohol Use Standard Drinks/Week Comments No 0 (1 standard drink = 0.6 oz pur e alcohol) Sex Assigned at Date Recorded Not on file Job Start Date Occupation Industry Not on file Not on file Not on file COVID-19 Exposure Response Date Recorded In the last 10 days, have yo u been in contact with someone who was confirmed or suspected to have Coronavirus/COVID-19? No / Unsure 12/29/2022 10:20 AM EDT documented as of this encounter Miscellaneous Notes * Telephone Encounter - Angela Jackson M.A. - 01/03/2023 11:45 AM EDT Medication request(s) pended for review Last appt- 09/01/22 Next appt- 01/24/23 Last appt w/ PCP- same as above Lab Results Component Value Date HGBA1C 10.8 09/01/2022 MALBUR 17.6 04/12/2021 MALBCR 19.1 04/12/2021 CHOL 81 12/16/2020 LDL 23 12/16/2020 HDL 37 12/16/2020 TRIG 109 12/16/2020 GLU 182 12/29/2022 CREAT 0.77 09/01/2022 * Telephone Encounter - Maribel Francisco - 01/03/2023 11:20 AM EDT Evidently [facility] did not get the refills from 11/02 * Telephone Encounter - Maribel Francisco - 01/03/2023 11:12 AM EDT Refills Last office visit: 09/01/22 - pt is completely out Last pcp: same Next office visit: 01/24/23 - pt would like a partial refill sent to [facility] on [place], [place] - please advise when done documented in this encounter Plan of Treatment Not on file documented as of this encounter Visit Diagnoses Not on filedocumented in this encounter Care Teams Biomaterials Engineer Relationship Specialty Start Date End Date Community, Pcp PCP - General Internal Medicine 01/03/23 documented as of this encounter
--- OUTSIDE RECORDS SUMMARY | 2024-10-08 15:10 | XMS_ITS | Encounter Summary ---
Author Organization [facility] Address [facility] [place] [address] Care Team Providers Care Net Finisher Name Role Phone Raphael Monson MD Primary Care Provider Unavail able Carol Begum MD Primary Care Provider Un available Community, Pcp Primary Care Provider Unavailabl e Encounter Details Date Type Department Care Team Description 04/29/2016 Release of Information Medical Records [address] [place] [id number] Abstract, Provider Social History Tobacco Use Types Packs/Day Years Used Date Smoking Tobacco: Former Cigarettes 0.5 3 0 07/22/1982 - 07/22/1985 Smokeless Tobacco: Former Alcohol Use Standard Drinks/Week Comments No 0 (1 standard drink = 0.6 oz pur e alcohol) Sex Assigned at Date Recorded Not on file Job Start Date Occupation Industry Not on file Not on file Not on file documented as of this encounter Plan of Treatment Not on file documented as of this encounter Visit Diagnoses Not on filedocumented in this encounter Care Teams Net Finisher Relationship Specialty Start Date End Date Raphael Monson MD PCP - General Internal Medicine 06/01/15 07/23/22 Carol Begum MD PCP - General Internal Medicine 07/24/22 3 [facility], Pcp PCP - General Internal Medicine 01/03/23 documented as of this encounter
--- OUTSIDE RECORDS SUMMARY | 2024-10-08 15:10 | XMS_ITS | Encounter Summary ---
Author Organization [facility] Address [facility] [place] [address] Care Team Providers Care Wooden Frame Builder Name Role Phone Raphael Monson MD Primary Care Provider Unavail able Carol Begum MD Primary Care Provider Un available [facility], Pcp Primary Care Provider Unavailabl e Reason for Visit * Reason Onset Date Comments Pre-visit Diabetes Lab Adult Medicine 12/08/202012/20 Encounter Details Date Type Department Care Team Description 12/08/2020 Telephone Medicine/Pediatrics [address] [phone] Raphael Monson MD Pre-visit Diabetes Lab Adult Medicine (12/20) Social History Tobacco Use Types Packs/Day Years [...] on file documented as of this encounter Miscellaneous Notes * Telephone Encounter - Nissa Kim - 12/08/2020 10:40 AM EDT Sent patient an email advising them to complete diabetic lab work at least three days prior to their upcoming appointment. documented in this encounter Plan of Treatment Not on file documented as of this encounter Visit Diagnoses Not on filedocumented in this encounter Care Teams Wooden Frame Builder Relationship Specialty Start Date End Date Raphael Monson MD PCP - General Internal Medicine 06/01/15 07/23/22 Carol Begum MD PCP - General Internal Medicine 07/24/22 3 [facility], Pcp PCP - General Internal Medicine 01/03/23 documented as of this encounter
--- OUTSIDE RECORDS SUMMARY | 2024-10-08 15:10 | XMS_ITS | Encounter Summary ---
Author Organization [facility] Address [address] [place] [address] Care Team Providers Care Clinical Data Analyst Name Role Phone Carol Begum MD Primary Care Provider Un available Community, Pcp Primary Care Provider Unavailabl e Encounter Details Date Type Department Care Team Description 09/01/2022 Pt. Non Urgent Medic al Question Adult Medicine - [address] [address] Carol Begum MD Social History Tobacco Use Types Packs/Day Years [...] suspected to have Coronavirus/COVID-19? No / Unsure 09/01/2022 2:55 PM EST documented as of this encounter Miscellaneous Notes * Telephone Encounter - Starr De Leon L.P.N. - 09/02/2022 1:21 PM EST From: Alexander Anton To: Christen Rasmussen Sent: 09/01/2022 8:05 PM EST Subject: Labs Can???t find A1c ? documented in this encounter Plan of Treatment Not on file documented as of this encounter Visit Diagnoses Not on filedocumented in this encounter Care Teams Clinical Data Analyst Relationship Specialty Start Date End Date Carol Begum MD PCP - General Internal Medicine 07/24/22 3 [facility], Pcp PCP - General Internal Medicine 01/03/23 documented as of this encounter
--- OUTSIDE RECORDS SUMMARY | 2024-10-08 15:10 | XMS_ITS | Encounter Summary ---
Author Organization [facility] Address [address] [place] [address] Care Team Providers Care Trailer Park Manager Name Role Phone Rahpael Monson MD Primary Care Provider Unavail able Carol Begum MD Primary Care Provider Un available [facility], Pcp Primary Care Provider Unavailabl e Reason for Visit * Reason Onset Date Comments Blood Sugar Elevated 07/24/2019 678 Encounter Details Date Type Department Care Team Description 07/24/2019 Telephone Adult Medicine [address] [address] Raphael Monson MD Blood Sugar Elevated (678) Social History Tobacco Use Types Packs/Day Years [...] encounter Miscellaneous Notes * Telephone Encounter - Raphael Monson MD - 07/28/2019 12:30 PM EST Forwarded to pt services for assistance, thank * Telephone Encounter - Kirstin Guerra L.P.N. - 07/28/2019 10:50 AM EST Spoke with pt. He did not receive his medication until 5 pm last night. He is very irate on the phone with me because he was told he would get his medication the day after I originally spoke with him. Unfortunately, [facility], so it's what I relayed to the pt. (See my notes below.) He did end up going to the ER on Sunday night for insulin (his blood sugar was 710). He tells me he did receive the calls from me, but didn't answer/call back because he didn'twant to say something he might regret later . He insists Dr. Monson, and by extension myself, dropped the ball on this by changing his address in the computer. (I don't know who originally changed it to a P.O. Box in the computer, but I had my BSR change it back to his physical address when the call came to me on last week.) He states he checked at [facility] pharmacy 3 times to see if we had faxed anything for him. I was under the impression that [facility] was over-nighting him his medications to be received on 07/25/19 (pt never informed me that he did not received them; I've called him several times since I spoke with him on 07/24/19 and he never answered or returned my calls).He states he's doing everything he can to not come here anymore because nobody cared . He then abruptly ended the call. FYI to Dr. Monson. * Telephone Encounter - Kirstin Guerra L.P.N. - 07/26/2019 8:46 AM EST Tried calling pt. Left detailed message on pt identified voicemail: just touching base. I want to make sure he received his medications from [facility]. How have his blood sugars been, and how is he feeling? Advised I'm working until 1:00 today. I asked him to call me back. If I don't hear from him I will readdress this on Sunday when I'm back in the office. * Telephone Encounter - Kirstin Guerra L.P.N. - 07/25/2019 4:48 PM EST Tried calling pt again. I did not leave a message this time. (He told me this morning that he nevergot my message last night. He's either not receiving my messages, or just not calling me back.) I am working in [employer] tomorrow morning. I will try to reach him again. * Telephone Encounter - Kirstin DouglassP.N. - 07/25/2019 3:43 PM EST Left message for pt to call back. Please transfer to extension [phone]. * Telephone Encounter - Kirstin Guerra L.P.N. - 07/25/2019 1:58 PM EST Left message for pt to call back. Please transfer to extension [phone]. * Telephone Encounter - Kirstin Guerra L.P.N. - 07/25/2019 9:08 AM EST Spoke with pt. He did not get my voicemail last night. I informed him this morning. His blood sugaris 675 this morning. He has not eaten since 5:00 AM yesterday (he's afraid to eat because the sugar will go up). He's only drinking water. I advised again he should be treated. He will not go to the ER. I asked him to come in to the office, at least. We can give him insulin here. He declines. States he doesn't like needles. States he just needs to get back on his normal routine . He denies anysymptoms of hyperglycemia at all. I asked him to call me back if anything changes. I will keep in touch with him today and make sure he gets his medications. FYI to Dr. Monson. * Telephone Encounter - Kirstin Guerra L.P.N. - 07/24/2019 4:49 PM EST Pt has been out of medication (metformin and glipizide) for 6 days. Blood sugar right now is 610. He tells me that [facility] won't send his scripts because we changed his address. (His mailing address was changed to a P.O. Box in EMR. They won't ship to a P.O. Box). I had Madonna change it back to hisphysical address. In the meantime, I advised pt go to the ER with a blood sugar over 600. He refuses. He states he would have no way to get there, except by ambulance; and that would cost him $1000 . He states he will not go and he hopes he's alive tomorrow . He's pretty upset about this and, honestly, I could barely speak with him (he kept interrupting and talking over me). I called [facility] and spoke with a pharmacist, Marylu. She reports this has been handled. They are expediting overnight shipping to pt's physical address (verified that they are shipping to [address] [place] [address]). The order has already been picked and will be shipped shortly. Pt should havehis medications tomorrow. I called pt back and got his self identified voicemail. I informed him of my conversation with Marylu. I again advised he go to the ER for a blood sugar greater than 600. Advised he may call back if he likes. He will automatically be connected with a night triage nurse. I will call him again in the morning. FYI to Dr. Monson. (Late entry) 07/26/19, 8:50 am: I was thinking about this last night and realized I forgot to document that when I originally spoke with pt about this he declined having us fax scripts for a small supply of his medications to his local pharmacy to get him by. He reported that this would cost him all kinds of money that he doesn't have . When his scripts come from [facility] he has a $0 copay. * Telephone Encounter - Jolie Morel - 07/24/2019 4:36 PM EST Symptoms patient is having: Patient is statiing he has a BS of 687 due to being without medication If pain or injury related was it due to an accident at work or from a motor vehicle accident? NO If yes, gather 3rd libertarian insurance information Date of accident/Injury: How long has patient had these symptoms?: PCP: Raphael Monson Payor: [facility] / Plan: [employer]ARP MEDICARE COMPLETE $15/$45 [facility] [id number] / Product Type: PPO [id number] documented in this encounter Plan of Treatment Not on file documented as of this encounter Visit Diagnoses Not on filedocumented in this encounter Care Teams Trailer Park Manager Relationship Specialty Start Date End Date Raphael Monson MD PCP - General Internal Medicine 06/01/15 07/23/22 Carol Begum MD PCP - General Internal Medicine 07/24/22 3 [facility], Pcp PCP - General Internal Medicine 01/03/23 documented as of this encounter
--- OUTSIDE RECORDS SUMMARY | 2024-10-08 15:10 | XMS_ITS | Encounter Summary ---
Author Organization [facility] Address [facility] [place] [address] Care Team Providers Care Plumbing Installer Name Role Phone Raphael Monson MD Primary Care Provider Unavail able Carol Begum MD Primary Care Provider Un available [facility], Pcp Primary Care Provider Unavailabl e Reason for Visit * Reason Onset Date Comments refill request 04/17/2019 Encounter Details Date Type Department Care Team Description 04/17/2019 Refill Gastroenterology [address] [phone] Gavin Brumfield MD refill request Social History Tobacco Use Types Packs/Day Years [...] on filedocumented in this encounter Care Teams Plumbing Installer Relationship Specialty Start Date End Date Raphael Monson MD PCP - General Internal Medicine 06/01/15 07/23/22 Carol Begum MD PCP - General Internal Medicine 07/24/22 3 [facility], Pcp PCP - General Internal Medicine 01/03/23 documented as of this encounter
--- OUTSIDE RECORDS SUMMARY | 2024-10-08 15:10 | XMS_ITS | Patient Health Record ---
Author Organization [facility], [facility] Address [address], [place] [address] Care Team Providers Care Body And Fender Worker Name Role Phone CONNOR FORD Primary Care Provider [phone] Rachael Benjamin Unavailable [phone] ALLERGIES No Known Allergies REASON FOR REFERRAL Reason Please refer to [facility] for pancolitis. Recent ED visit with CT results. Thank you Diagnosis 1 Pancolitis (K51.00) [facility] Referring Provider First Name Rachael Referring Provider Last Name Sourav Referring Provider Speciality Nurse Prac titioner Referred [facility] Referred Address [address], [id number], Referred Provider Specialty Gastroentero logy General Notes CHANCE LU 10/31 03:43:54 PM >BMP Form, Referral for consultation, OV Note, CT Scan and ER Notes faxed to [facility] [phone] AMY 12/05/2023 10:20:19 AM >Referral, CT Scan, ER Notes all faxed to [facility] as patients insurance was not taken at [facility]. [phone]. Referral Priority Routine MEDICATIONS Medication SIG (Take, [...] with Women only Section Notes: [place]. Patient is on [place]. [place]. [place] is on disability. [place]. Patient is on disability. Lives in [facility] [place] his dog. Patient is on disability. Lives in [facility] [place] his dog. Patient is on disability. [place] Patient is on disability. Lives in [facility] [place] his dog. Patient is on disability. Lives in [facility] [place] his dog. Patient is on disability. PROBLEMS Problem Type ICD Code Onset Dates Problem Status W/U Status Risk SNOMED Code Notes Problem Essential (primary) hypertension (I10) Active confirmed 45887428 Problem Atherosclerotic heart disease of [place] coronary artery without angina pectoris (I25.10) Active confirmed 671714675 Problem Coronary atherosclerosis due to lipid rich plaque (I25.83) Active confirmed 878100650885146 Problem Type 2 diabetes mellitus with hyperglycemia, without long-term current use of insulin (E11.65) Active confirmed 00714557 Problem Other iron deficiency anemia (D50.8) Active confirmed 83058317 Problem Abnormal CBC (R79.89) Active confirmed 241252169 VITAL SIGNS Heart Rate 78 /min 11/08/2023 Height-cm 177.8 cm 11/08/2023 Oximetry 96 % 11/08/2023 Blood pressure diastolic 62 mm Hg 11/08/2023 Weight-kg 70.4 kg 11/08/2023 Height 70 in 11/08/2023 Blood pressure systolic 124 mm Hg 11/08/2023 Weight 155.2 lbs 11/08/2023 BMI 22.27 kg/m2 11/08/2023 Encounters Encounter Location Date Provider Diagnosis [address] [id number] 11/06/2023 Rachael Benjamin [facility] [address] [facility] [place] [place] [id number] 11/08/2023 Rachael Benjamin [facility], [facility] [address] [facility] [place] [place] [phone] 11/28/2023 Rachael Benjamin Atherosclerotic hear t disease of [place] coronary artery without angina pectoris I25.10 ; Coronary atherosclerosis due to lipid rich plaque I25.83 and Pancolitis K51.00 ASSESSMENTS Encounter Date Diagnosis Assessment Notes Treatment Notes Treatment Clinical Notes Section Notes 11/28/2023 Atherosclerotic heart disease of [place] coronary artery without angina pectoris (ICD-10 - I25.10) 11/28/2023 Coronary atherosclerosis due to lipid rich plaque (ICD-10 - I25.83) 11/28/2023 Pancolitis (ICD-10 - K51.00) PLAN OF TREATMENT Future Test Test Name [...] Insured Coverage Start Date Coverage End Date [facility] [address] [address] [place] [address] [id number] DAMEON SINCLAIR Self - patient is the insured MEDICAL (GENERAL) HISTORY Medical History History ICD Code Diabetes Coronary Artery Disease Stent placed Angiogram Surgical History Surgery Date(Month/Year) Spinal Fusion 1989 Colonoscopy 11/2022 Coronary Stent 08/2020 Vasectomy 1994
--- OUTSIDE RECORDS SUMMARY | 2024-10-08 15:10 | XMS_ITS | Encounter Summary ---
Author Organization [facility] Address [facility] [place] [address] Care Team Providers Care Collar Setter Overlock Name Role Phone Raphael Monson MD Primary Care Provider Unavail able Carol Begum MD Primary Care Provider Un available Community, Pcp Primary Care Provider Unavailabl e Encounter Details Date Type Department Care Team Description 07/22/2015 Release of Information Medical Records [address] [place] [address] Abstract, Provider Social History Tobacco Use Types Packs/Day Years Used Date Smoking Tobacco: Former Cigarettes 0.5 3 0 07/22/1982 - 07/22/1985 Smokeless Tobacco: Never Alcohol Use Standard Drinks/Week Comments No 0 [...] on filedocumented in this encounter Care Teams Collar Setter Overlock Relationship Specialty Start Date End Date Raphael Monson MD PCP - General Internal Medicine 06/01/15 07/23/22 Carol Begum MD PCP - General Internal Medicine 07/24/22 3 [facility], Pcp PCP - General Internal Medicine 01/03/23 documented as of this encounter
--- OUTSIDE RECORDS SUMMARY | 2024-10-08 15:10 | XMS_ITS | Encounter Summary ---
Author Organization [facility] Address [facility] [place] [address] Care Team Providers Care Appliance Worker Name Role Phone Raphael Monson MD Primary Care Provider Unavail able Carol Begum MD Primary Care Provider Un available Community, Pcp Primary Care Provider Unavailabl e Reason for Visit * Reason Onset Date Comments Transitional Care Management (Tcm) 09/24/2020 [facility] d/c 09/23/2020 Encounter Details Date Type Department Care Team Description 09/24/2020 [facility] Medicine/Pediatrics [address] [address] Raphael Monson MD Transitional Care Management (Tcm) ([facility] d/c 09/23/2020) Social History Tobacco Use Types Packs/Day Years [...] on filedocumented in this encounter Care Teams Appliance Worker Relationship Specialty Start Date End Date Raphael Monson MD PCP - General Internal Medicine 06/01/15 07/23/22 Carol Begum MD PCP - General Internal Medicine 07/24/22 3 Community, Pcp PCP - General Internal Medicine 01/03/23 documented as of this encounter
--- OUTSIDE RECORDS SUMMARY | 2024-10-08 15:10 | XMS_ITS | Encounter Summary ---
Author Organization [facility] Address [facility] [place] [address] Care Team Providers Care General Forecaster Name Role Phone Raphael Monson MD Primary Care Provider Unavail able Carol Begum MD Primary Care Provider Un available Community, Pcp Primary Care Provider Unavailabl e Encounter Details Date Type Department Care Team Description 09/23/2020 [facility] Medical Records [address] [place] [address] Social History Tobacco Use Types Packs/Day Years [...] on filedocumented in this encounter Care Teams General Forecaster Relationship Specialty Start Date End Date Raphael Monson MD PCP - General Internal Medicine 06/01/15 07/23/22 Carol Begum MD PCP - General Internal Medicine 07/24/22 3 [facility], Pcp PCP - General Internal Medicine 01/03/23 documented as of this encounter
--- OUTSIDE RECORDS SUMMARY | 2024-10-08 15:10 | XMS_ITS | Clinical Summary ---
Author Organization [facility] [address] Address [address] [place] [address] Phone Care Team Providers Care Accredited Farm Manager Name Role Phone Rachael Benjamin Primary Care Provider [phone] Allergies No known active allergies Medications aspirin 81 mg EC tablet Take 1 tablet (81 mg total) by mouth. 09/01/2022 Active atorvastatin (LIPITOR) 80 mg tablet 01/03/2023 Active glipiZIDE (GLUCOTROL XL) 10 mg 24 hr tablet 09/05/2022 Active metFORMIN (GLUCOPHAGE) 1,000 mg tablet 11/02/2022 Act heidy metoprolol tartrate (LOPRESSOR) 25 mg tablet 01/03/2023 Active Social History Tobacco Use Types Packs/Day Years Used Date Smoking Tobacco: Former Cigarettes Q uit: 07/02/1993 Sex and Gender Information Value Date Recorded Sex Assigned at Not on file Legal Sex Male 2:43 PM EST Gender Identity Not on file Sexual Orientation Not on file Obstetrics History Last Filed Vital Signs Vital Sign Reading Time Taken Comments Blood Pressure 131/68 09/01/2022 3:02 PM EST Pulse 68 09/01/2022 3:02 PM EST Temperature - - Respiratory Rate - - Oxygen Saturation - - Inhaled Oxygen Concentration - - Weight 71 kg (156 lb 9.6 oz) 10/19/2023 9:41 AM EDT Height 181 cm (5' 11.25 ) 10/05/2023 11:08 AM ED T Body Mass Index 21.69 10/05/2023 11:08 AM EDT Plan of Treatment Health Maintenance Due Date Last Done Comments Diabetes: Annual Foot Exam 11/02/1969 Diabetes: Annual Retina Eye Exam 11/02/1969 Zoster Vaccines (1 of 2) 11/02/2009 Pneumococcal Vaccine: 50+ Years (2 of 2 - PCV) 06/15/2017 06/15/2016 Cholesterol Screening (Lipid Panel) 06/10/2022 Colorectal Cancer Screening: Colonoscopy 06/10/2022 Depression Screening 06/10/2022 Social Influencers of Health Screening 06/10/2022 Diabetes: Annual Urine Albumin-Creatinine Ratio (uACR) 06/16/2022 Diabetes: Blood Sugar Control Test (HGBA1C) 06/16/2022 COVID-19 Vaccine ( season) 2024 11/12/2020, 10/22/2020 Diabetes: Annual GFR (Glomerular Filtration Rate) 10/04/2024 10/05/2023, 10/05/2023 Influenza Vaccine (Season Ended) 2025 04/15/2021, 08/25/2019, 04/08/2018, Additional history exists DTaP,Tdap,and Td Vaccines (2 - Td or Tdap) 06/15/2026 06/15/2016 RSV Immunization Adult Patients (1 - 1-dose 75+ series) 11/02/2034 Pneumococcal Vaccine: Pediatrics (0 to 5 Years) and At-Risk Patients (6 to 64 Years) Aged Out 06/15/2016 No longer eligible based on patient's age to complete this topic HIV Screening Completed 10/05/2023 Hepatitis C Screening Completed 10/05/2023 HIB Vaccines Aged Out No longer eligi ble based on patient's age to complete this topic HPV Vaccines Aged Out No longer eligi ble based on patient's age to complete this topic Hepatitis A Vaccines Aged Out No long er eligible based on patient's age to complete this topic Hepatitis B Vaccines Aged Out No long er eligible based on patient's age to complete this topic IPV Vaccines Aged Out No longer eligi ble based on patient's age to complete this topic MMR Vaccines Aged Out No longer eligi ble based on patient's age to complete this topic Meningococcal ACWY Vaccine Aged Out N o longer eligible based on patient's age to complete this topic Meningococcal B Vaccine Aged Out No l onger eligible based on patient's age to complete this topic RSV Immunization Patients Under 20 months Aged Out No longer eligible based on patient's age to complete this topic Varicella Vaccines Aged Out No longer eligible based on patient's age to complete this topic Procedures Procedure Name Priority Date/Time Associated Diagnosis Comments HEPATITIS C SCREENING Routine 10/05/2023 HIV SCREENING Routine 10/05/2023 ANNUAL BMP BLOOD TEST Routine 10/05/2023 from Last 3 Months or Most Recently Relevant to Health Maintenance Results * Annual BMP Blood Test (10/05/2023) Pathologist Count includes the [facility] Annual BMP Blood Test Abstracted Historical Provider MD HEALTH MAINTENANCE Final Result * HIV Screening (10/05/2023) Pathologist [facility] HIV Screening Abstracted Historical Provider HEALTH MAINTENANCE Final Result * Hepatitis C Screening (10/05/2023) Pathologist Count includes the [facility] Hepatitis C Screening Abstracted Historical Provider HEALTH MAINTENANCE Final Result from Last 3 Months or Most Recently Relevant to Health Maintenance Care Teams Accredited Farm Manager Relationship Specialty Start Date End Date Rachael Benjamin [address] [place], [place] [address] [phone] PCP - General 10/06/23
--- OUTSIDE RECORDS SUMMARY | 2024-10-08 15:10 | XMS_ITS | Encounter Summary ---
Author Organization [facility] Address [address] [place] [address] Care Team Providers Care Rod Buster Name Role Phone Carol Begum MD Primary Care Provider Un available Community, Pcp Primary Care Provider Unavailabl e Encounter Details Date Type Department Care Team Description 09/05/[address] [address] Carol Begum MD Social History Tobacco Use [...] PM EST documented as of this encounter Plan of Treatment Not on file documented as of this encounter Visit Diagnoses Not on filedocumented in this encounter Care Teams Rod Buster Relationship Specialty Start Date End Date Carol Begum MD PCP - General Internal Medicine 07/24/22 3 [facility], Pcp PCP - General Internal Medicine 01/03/23 documented as of this encounter
--- OUTSIDE RECORDS SUMMARY | 2024-10-08 15:10 | XMS_ITS ---
Author Organization [facility] Address [address] [place] [id number] Care Team Providers Care Automotive Tire Tester Name Role Phone CONNOR FORD Primary Care Provider Rachael Benjamin Unavailable [phone] ALLERGIES No Known Allergies REASON FOR VISIT [...] with Women only Section Notes: [place] [facility]. Patient is on disability. VITAL SIGNS Blood pressure systolic 124 mm Hg 11/08/19 24 Blood pressure diastolic 62 mm Hg 024 Heart Rate 78 /min 11/08/2023 Height 70 in 11/08/2023 Weight 155.2 lbs 11/08/2023 BMI 22.27 kg/m2 11/08/2023 Oximetry 96 % 11/08/2023 Height-cm 177.8 cm 11/08/2023 Weight-kg 70.4 kg 11/08/2023 Encounters Encounter Location Date Provider Diagnosis [address] [place] [phone] 11/08/2023 Rachael Benjamin PLAN OF TREATMENT No Information Progress Notes * DAMEON SINCLAIRDOB:1960 (63 yo M)Acc No.[id number]:11/08/2023 Progress Notes Patient:??DAMEON SINCLAIR Provider:??Rachael Benjamin DNP :1960?Age:63 Y?Sex:Agustin le Date:11/08/2023 Phone: Address: [facility] [place] Pcp:CONNOR FORD Subjective: * Chief Complaints: * ?f/u labs & GI bleed * HPI: ?Patient Care Team:?Final Finisher Forging Dies:??[facility]. Boy'S Adviser: Dr. Saroj [place]..?Visit info:? Dameon presents in the office today for a lab review. Patient is very upset and confused about being referred to [place] for 3 weeks of testing. ?He states [...] continued to tell the provider that the shale planer operator told him that his pcp didn't know [...] lifting, bicycle, [employer]. 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 ?Lives in [place], [place] alone with his dog. Patient is [...] Notes Category Not es Patient Care Team Final Finisher Forging Dies: Dolores mantilla. Boy'S Adviser: Dr. Saroj Robles. Visit info Dameon presents [...] continued to tell the provider that the shale planer operator told him that his pcp didn't know what she was doing and advised him to seek alternate care. He would not allow provider to speak and continued to repeat himself. At this time, he was politely asked to leave the office- which he did.
--- OUTSIDE RECORDS SUMMARY | 2024-10-08 15:10 | XMS_ITS | Encounter Summary ---
Author Organization [facility] Address [facility] [place] [address] Care Team Providers Care Digital Sales Planner Name Role Phone Raphael Monson MD Primary Care Provider Unavail able Carol Begum MD Primary Care Provider Un available Community, Pcp Primary Care Provider Unavailabl e Encounter Details Date Type Department Care Team Description 11/20/2016 SCAN Medical Records [address] [place] [address] Abstract, Provider Social History Tobacco Use Types [...] on file documented as of this encounter Procedures Procedure Name Priority Date/Time Associated Diagnosis Comments OUTSIDE MRI/MRA Routine 11/15/2016 documented in this encounter Results * OUTSIDE MRI/MRA (11/15/2016) Provider Abstract RADIOLOGY documented in this encounter Visit Diagnoses Not on filedocumented in this encounter Care Teams Digital Sales Planner Relationship Specialty Start Date End Date Raphael Monson MD PCP - General Internal Medicine 06/01/15 07/23/22 Carol Begum MD PCP - General Internal Medicine 07/24/22 3 Community, Pcp PCP - General Internal Medicine 01/03/23 documented as of this encounter
--- OUTSIDE RECORDS SUMMARY | 2024-10-08 15:10 | XMS_ITS | Encounter Summary ---
Author Organization [facility] Address [address] [place] [address] Care Team Providers Care Extension Forester Name Role Phone Raphael Monson MD Primary Care Provider Unavail able Carol Begum MD Primary Care Provider Un available [facility], Pcp Primary Care Provider Unavailabl e Reason for Visit * Reason Onset Date Comments medication problems 04/23/2018 Encounter Details Date Type Department Care Team Description 04/23/2018 Telephone Medicine/Pediatrics [address] [address] Raphael Monson MD medication problems Social History Tobacco Use [...] Telephone Encounter - Raphael Monson MD - 04/23/2018 8:11 PM EDT noted * Telephone Encounter - Melissa Horton M.A. - 04/23/2018 2:47 PM EDT Spoke with pt, states his plan is changing as of 07/02/18 and the new plan will not cover glipizide XR but will cover plain glipizide. Pt just filled XR rx so he is good until the new year but wanted you to be aware of the change. Med can be switched to an alternative of plain glipizide is covered. Please review and advise. Pt has pending appt 07/12/18. * Telephone Encounter - Bhavya Get - 04/23/2018 2:36 PM EDT Who is calling? The patient Name of the medication glipiZIDE (GLUCOTROL) 10 MG 24h What is the specific problem or interaction? After 07-16-17 pharmacy states pt insurance will no longer cover Glipizide XR, only the regular Glipizide will be covered. Pt has enough medication until then. Pt wanted to speak about alternatives with PCP If the patient is having a problem with taking the med - how long has the problem been going on? today documented in this encounter Plan of Treatment Not on file documented as of this encounter Visit Diagnoses Not on filedocumented in this encounter Care Teams Extension Forester Relationship Specialty Start Date End Date Raphael Monson MD PCP - General Internal Medicine 06/01/15 07/23/22 Carol Begum MD PCP - General Internal Medicine 07/24/22 3 [facility], Pcp PCP - General Internal Medicine 01/03/23 documented as of this encounter
--- OUTSIDE RECORDS SUMMARY | 2024-10-08 15:10 | XMS_ITS ---
Author Organization [facility] Address [address] [place], [place] [address] Care Team Providers Care Fire Watchman Name Role Phone CONNOR FORD Primary Care Provider Rachael Benjamin [phone] REASON FOR REFERRAL Reason Please refer to [facility] for pancolitis. Recent ED visit with CT results. Thank you Diagnosis 1 Pancolitis (K51.00) [facility] Referring Provider First Name Rachael Referring Provider Last Name oSurav Referring Provider Speciality Nurse Prac titioner Referred [facility] Referred Address [address] [place], [id number], Referred Provider Specialty Gastroentero logy General Notes CHANCE LU 10/31 03:43:54 PM >BMP Form, Referral for consultation, OV Note, CT Scan and ER Notes faxed to [facility] [phone] AMY 12/05/2023 10:20:19 AM >Referral, CT Scan, ER Notes all faxed to [facility] as patients insurance was not taken at [facility]. [phone]. Referral Priority Routine REASON FOR VISIT GI Referral MEDICATIONS Medication SIG (Take, Route, Frequency, Duration) Notes Start Date End Date Status Metoprolol Tartrate 25 MG 1 tablet with food Orally Twice a day for 90 days Active Lipitor 80 MG 1 tablet Orally Once a day for 90 days Active Encounters Encounter Location Date Provider Diagnosis 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 Thank you , [address] [place], [place] [address], [id number], @[email or web address], Progress Notes * DAMEON SINCLAIRDOB:1960 (63 yo M)Acc No.[id number]:11/28/2023 Patient:??WADE SINCLAIRLEY :1960?Age:63 Y?Sex:Shane guevara Phone: Address:[address] [place] [address] * Refills?? 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 Plan: * Treatment: 2.??Coronary atherosclerosis due to lipid rich plaque?? Refill Lipitor Tablet, 80 MG, 1 tablet, Orally, Once a day, 90 days, 90 Tablet, Refills 1.? 3.??Pancolitis? Referral To:Gastroenterology ?Reason:Please refer to [facility] for pancolitis. Recent ED visit with CT results. Thank you * Procedure Codes:?? * true * Date:?? Consultation Request Notes Referral Date Referring Provider Referred Provider Not es 11/28/2023 Rachael Benjamin , Please refer to [facility] for pancolitis. Recent ED visit with CT results. Thank you
== END 2024-10-08 13:42 | disposition home or self-care (01) ==
LOC: HO.ENCR 13:06
PROVIDERS: PCP Internal Medicine; Visit Provider Internal Medicine
DX: E11.59 Type 2 diabetes mellitus with other circulatory complications (principal); E16.2 Hypoglycemia, unspecified

== ENCOUNTER → 2024-10-08 13:02 | Outpatient (BNVA) | payer MEDICARE, SELFPAY | PROVIDERS: PCP Internal Medicine; Visit Provider Internal Medicine | DX: E11.59 Type 2 diabetes mellitus with other circulatory complications (principal); E16.2 Hypoglycemia, unspecified | CPT/HCPCS: 82947; 83036; 99212 ==